=== PATIENT | male | born 1970 | race Caucasian/White ===

== ENCOUNTER 2020-08-13 05:32 | Inpatient (IN) | payer BC ==
[2020-08-13] MEDS ORDERED: SODIUM CHLORIDE 0.9% 1,000 ML IV STA (05:51)
--- NOTE | 2020-08-13 05:52 | ED ---
Chest Pain HPI - General Chief Complaint: Chest Pain Stated Complaint: SOB Time Seen by Provider: 08/13/20 05:39 Source: patient, RN notes reviewed, old records reviewed Mode of arrival: EMS Limitations: no limitations - History of Present Illness Initial Comments: this is a 50-year-old female male DF for evaluation known history of covert exposure presented he has current covert. Having fevers last night shortness of breath today. MD Complaint: chest pain -: week(s) Onset: during rest, during exertion Pain Location: left chest Pain Radiation: back Severity: moderate Severity scale (1-10): 5 Quality: tightness, heaviness Consistency: constant Improves With: nothing Worsens With: nothing Anginal Symptoms: diaphoresis, dyspnea Other Symptoms: fever, palpitations Treatments Prior to Arrival: none - Related Data Home Medications Medication Instructions Recorded Confirmed No Known Home Medications 08/13/20 08/13/20 Allergies Allergy/AdvReac Type Severity Reaction Status Date / Time No Known Allergies Allergy Verified 08/13/20 09:56 Review of Systems ROS Statement: Those systems with pertinent positive or pertinent negative responses have been documented in the HPI. ROS Other: All systems not noted in ROS Statement are negative. EKG Findings - EKG Comments: EKG Findings:: EKG is sinus rhythm 80 MO 1:30 QRS 80 QTC 4 Past Medical History Past Medical History: No Reported History History of Any Multi-Drug Resistant Organisms: None Reported Past Surgical History: No Surgical Hx Reported Past Psychological History: No Psychological Hx Reported Smoking Status: Former smoker Past Alcohol Use History: Rare Past Drug Use History: None Reported - Past Family History Father Family Medical History: No Reported History Mother Additional Family Medical History / Comment(s): History of skin cancer Sister(s) Family Medical History: No Reported History General Exam Limitations: no limitations General appearance: alert, in no apparent distress Head exam: Present: atraumatic, normocephalic, normal inspection Eye exam: Present: normal appearance, PERRL, EOMI. Absent: scleral icterus, conjunctival injection, periorbital swelling ENT exam: Present: normal exam, mucous membranes moist Neck exam: Present: normal inspection. Absent: tenderness, meningismus, lymphadenopathy Respiratory exam: Present: accessory muscle use, decreased breath sounds (Left), prolonged expiratory. Absent: respiratory distress, wheezes, rales, rhonchi, stridor Cardiovascular Exam: Present: regular rate, normal rhythm, tachycardia, normal heart sounds. Absent: systolic murmur, diastolic murmur, rubs, gallop, clicks GI/Abdominal exam: Present: soft, normal bowel sounds. Absent: distended, tenderness, guarding, rebound, rigid Extremities exam: Present: normal inspection, full ROM, normal capillary refill. Absent: tenderness, pedal edema, joint swelling, calf tenderness Back exam: Present: normal inspection Neurological exam: Present: alert, oriented X3, CN II-XII intact Psychiatric exam: Present: normal affect, normal mood Skin exam: Present: warm, dry, intact, normal color. Absent: rash Course Vital Signs 08/13/20 08/13/20 08/13/20 05:37 06:15 06:35 Temperature 98.3 F 98.1 F Pulse Rate 89 77 Respiratory 20 24 19 Rate Blood Pressure 126/74 118/74 O2 Sat by Pulse 96 95 Oximetry 08/13/20 08/13/20 07:32 07:42 Temperature Pulse Rate 76 84 Respiratory Rate Blood Pressure O2 Sat by Pulse Oximetry - Reevaluation(s) Reevaluation #1: medical records reviewed patient still remains short of breath does not feel well with fever Patient informed results questions answered Chest Pain MDM - MDM 50 male DF for evaluation, patient be admitted for fever shortness of breath rule out coronavirus Disposition Clinical Impression: Chest pain, Atypical chest pain, Fever, Pleural effusion, right Narrative: ro COVID Disposition: ADMITTED IP TO THIS HOSP Condition: Fair Is patient prescribed a controlled substance at d/c from ED?: No
[2020-08-13 06:23] LABS: Basophils # (A) 0.1 k/uL (0-0.2); Basophils % (A) 1 %; Eosinophils # (A) 0.3 k/uL (0-0.7); Eosinophils % (A) 2 %; HGB 14.6 gm/dL (13.0-17.5); Lymphocytes # (A) 1.7 k/uL (1.0-4.8); Lymphocytes % (A) 9 %; MCH 30.9 pg (25.0-35.0); MCHC 33.9 g/dL (31.0-37.0); MCV 91.2 fL (80.0-100.0); Mean Platelet Volume 8.4; Monocytes # (A) 1.1 k/uL (0-1.0); Monocytes % (A) 6 %; Neutrophils # (A) 15.9 k/uL (1.3-7.7); Neutrophils % (A) 83 %; Platelet Count 325 k/uL (150-450); RBC 4.72 m/uL (4.30-5.90); WBC 19.2 k/uL (3.8-10.6)
[2020-08-13 06:31] LABS: ALT 26 U/L (4-49); AST 19 U/L (17-59); African American GFR (CKD) >90 (>60 ml/min/1.73 sqM); Albumin 4.2 g/dL (3.5-5.0); Alkaline Phosphatase 72 U/L (38-126); Anion Gap 9 mmol/L; Blood Urea Nitrogen 15 mg/dL (9-20); Calcium 9.3 mg/dL (8.4-10.2); Carbon Dioxide 27 mmol/L (22-30); Chloride 101 mmol/L (98-107); Creatine Kinase 35 U/L (55-170); Glucose 126 mg/dL (74-99); LDH 409 U/L (313-618); Magnesium 1.8 mg/dL (1.6-2.3); Non-African American GFR(CKD) >90 (>60 ml/min/1.73 sqM); Potassium 4.4 mmol/L (3.5-5.1); Sodium 137 mmol/L (137-145); Total Bilirubin 1.2 mg/dL (0.2-1.3)
[2020-08-13] MEDS ORDERED: MORPHINE SULFATE 4 MG/ML SYRINGE IVP STA (06:36)
[2020-08-13 06:38] LABS: Prothrombin Time 10.3 sec (9.0-12.0)
[2020-08-13 06:39] LABS: C Reactive Protein 53.7 mg/L (<10.0); D-Dimer 0.94 mg/L FEU (<0.60)
[2020-08-13] MEDS ORDERED: PNEUMONIA PROTOCOL UTILIZED 1 EACH MISC PO PRN (07:05)
--- NOTE | 2020-08-13 07:06 | CT ---
EXAMINATION TYPE: CT angio chest DATE OF EXAM: 08/13/2020 6:56 AM COMPARISON: None. HISTORY: Mid back pain, SOB CT DLP: 374.5 mGycm Automated exposure control for dose reduction was used. CONTRAST: CTA scan of the thorax is performed with IV Contrast, patient injected with 71 mL of Isovue 370, pulm onary embolism protocol. . FINDINGS: LUNGS: Exam noted suboptimal as patient unable to hold breath especially for subcentimeter nodules.. There is small to moderate left pleural effusion with associated compressive atelectasis. There is po sterior right basilar atelectasis and/or Limited consolidation. No pneumothorax seen bilaterally. No suspicious pulmonary masses. Tracheobronchial tree patent. MEDIASTINUM: There is satisfactory enhancement of the pulmonary artery and its branches, there is no CT evidence for pulmonary embolism. Satisfactory enhancement of the aorta without dissection or aneur ysm. There are some prominent borderline enlarged bilateral hilar along with subcarinal and right tra cheobronchial lymph nodes. Cardiomegaly is present. No pericardial effusion is seen. OTHER: Small degree of subareolar gynecomastia bilaterally. Visualized liver low density relative to the spleen consistent with diffuse fatty infiltration. Mild multilevel spurring in the thoracic spin e. IMPRESSION: 1. No CT evidence for acute pulmonary embolism. 2. Cardiomegaly with small to moderate size left pleural effusion and associated left lung compressiv e atelectasis. Less prominent right basilar atelectasis and/or consolidation.
[2020-08-13] MEDS ORDERED: AZITHROMYCIN 500 MG in SODIUM CHLORIDE 0.9% 250 ML IVPB STA (07:08)
[2020-08-13] MEDS: IPRATROPIUM-ALBUTEROL 3 ML NEB INHALATION PRN ×3 (07:29→20:21)
[2020-08-13] MEDS ORDERED: AZITHROMYCIN 500 MG in SODIUM CHLORIDE 0.9% 250 ML IVPB SCH (09:00)
[2020-08-13] MEDS: MORPHINE SULFATE 4 MG/ML SYRINGE IVP PRN ×2 (12:40→19:30)
--- NOTE | 2020-08-13 14:15 | P.CNPUL ---
History of Present Illness Consult date: 08/13/20 Requesting physician: Ailyn Atwood Reason for consult: dyspnea, abnormal CXR/CT (Left lower lobe consolidation) Chief complaint: Left-sided chest discomfort, shortness of breath History of present illness: This is a pleasant 50-year-old gentleman with no current primary care provider. No current home medications. He presented here to the emergency room yesterday with complaints of increasing left-sided chest discomfort and shortness of breath. He states he was exposed to CoVID 19 back in April and feels like he had it at that time. He was tested negative but his [id number] tested positive. He's had recently moved here from the [facility]. CT angiogram revealed no evidence of acute pulmonary embolism. There is cardiomegaly with a small to moderate left sided pleural effusion and associated left lung compressive atelectasis/infiltrate and he has a temperature of 99.9. Maintaining O2 saturations in the mid 90s on 2 L/m per nasal cannula. He is hemodynamically stable. He is seen today in consultation on the regular medical floor. Awake and alert in no acute distress. White count 19.2. Hemoglobin 14.6. D-dimer 0.94. Sodium 137. Potassium 4.4. Creatinine 0.96. LDH 409. Troponin negative 1. C-reactive protein 53.7. ProBNP 18. Pro-calcitonin 0.50. He's been initiated on ceftriaxone and azithromycin. CoVID 19 by PCR pending. Review of Systems REVIEW OF SYSTEMS: CONSTITUTIONAL: Denies any recent significant weight loss or weight gain. EYES: Denies change in vision. EARS, NOSE, MOUTH, THROAT: Denies headaches, denies sore throat. CARDIOVASCULAR: Positive for left-sided chest pain chest pain, no palpitations or syncopal episodes. RESPIRATORY: Positive for shortness of breath, cough, congestion no hemoptysis. GASTROINTESTINAL: Denies change in appetite, denies abdominal pain GENITOURINARY: Denies hematuria, denies infections. MUSKULOSKELETAL: Denies pain, denies swelling. INTEGUMENTARY: Denies rash, denies eczema. NEUROLOGICAL: Denies recent memory loss, no recent seizure activity. PSYCHIATRIC: Denies anxiety, denies depression. HEMATOLOGIC/LYMPHATIC: Denies anemia, denies enlarged lymph nodes. Past Medical History Past Medical History: No Reported History History of Any Multi-Drug Resistant Organisms: None Reported Past Surgical History: No Surgical Hx Reported Past Anesthesia/Blood Transfusion Reactions: No Reported Reaction Past Psychological History: No Psychological Hx Reported Smoking Status: Former smoker Past Alcohol Use History: Rare Past Drug Use History: None Reported - Past Family History Father Family Medical History: No Reported History Medications and Allergies Home Medications Medication Instructions Recorded Confirmed Type No Known Home Medications 08/13/20 08/13/20 History Allergies Allergy/AdvReac Type Severity Reaction Status Date / Time No Known Allergies Allergy Verified 08/13/20 09:56 Physical Exam Vitals: Vital Signs Temp Pulse Pulse Resp BP BP Pulse Ox 08/13/20 11:55 88 08/13/20 11:46 80 08/13/20 08:20 99.9 F H 80 22 128/79 96 08/13/20 07:42 84 08/13/20 07:32 76 08/13/20 06:35 98.1 F 77 19 118/74 95 08/13/20 06:15 24 08/13/20 05:37 98.3 F 89 20 126/74 96 Intake and Output 08/12/20 08/13/20 08/13/20 22:59 06:59 14:59 Intake Total 640 Balance 640 Intake: Oral 640 Other: Weight 90.718 kg 90.718 kg GENERAL EXAM: Alert, active, pleasant 50-year-old gentleman, on 2 L nasal cannula, comfortable in no apparent distress. HEAD: Normocephalic. EYES: Normal reaction of pupils, equal size. NOSE: Clear with pink turbinates. THROAT: No erythema or exudates. NECK: No masses, no JVD. CHEST: No chest wall deformity. LUNGS: Equal air entry with crackles in left posterior base, diminished. CVS: S1 and S2 normal with no audible murmur, regular rhythm. ABDOMEN: No hepatosplenomegaly, normal bowel sounds, no guarding or rigidity. SPINE: No scoliosis or deformity SKIN: No rashes CENTRAL NERVOUS SYSTEM: No focal deficits, tone is normal in all 4 extremities. EXTREMITIES: There is no peripheral edema. No clubbing, no cyanosis. Peripheral pulses are intact. Results - Laboratory Findings CBC and BMP: 08/13/20 06:12 08/13/20 06:12 PT/INR, D-dimer PT 10.3 sec (9.0-12.0) 08/13/20 06:12 INR 1.0 (<1.2) 08/13/20 06:12 D-Dimer 0.94 mg/L FEU (<0.60) H 08/13/20 06:12 Abnormal lab findings: Abnormal Labs 08/13/20 08/13/20 08/13/20 06:12 06:12 06:12 WBC 19.2 H Neutrophils # 15.9 H Monocytes # 1.1 H D-Dimer 0.94 H Glucose 126 H Creatine Kinase 35 L C-Reactive Protein 53.7 H Procalcitonin 08/13/20 06:12 WBC Neutrophils # Monocytes # D-Dimer Glucose Creatine Kinase C-Reactive Protein Procalcitonin 0.50 H - Diagnostic Findings CT scan - chest: image reviewed Assessment and Plan Assessment: 1 Acute community-acquired left lower lobe pneumonia, CoVID 19 screen pending 2 Left-sided chest discomfort secondary to above 3 Acute hypoxemic respiratory failure secondary to above Plan: The patient was seen and evaluated by Dr. Abdi Chest x-ray and labs reviewed Suspect community-acquired pneumonia versus Covid pneumonitis Covid screen pending Continue ceftriaxone and azithromycin, bronchodilators We will continue to follow and make further recommendations based on his clinical status. I, the cosigning physician, performed a history & physical examination of the patient. Lungs sounds with crackles in left posterior base, diminished Maintaining good O2 saturations in the 90s on 2 L/m per nasal cannula. I discussed the assessment and plan of care with my nurse practitioner, Naomie Medrano. I attest to the above consultation as dictated by her. Time with Patient: Greater than 30
[2020-08-13] MEDS: KETOROLAC 15 MG/ML 1 ML VIAL IVP PRN ×2 (15:20→21:30)
--- NOTE | 2020-08-13 16:03 | P.HPIM ---
History of Present Illness Patient is a 50-year-old male came in with compensative shortness of breath and left-sided chest pain. Patient was exposed to family members with Covid 19 in April. Patient was comparing of cough unable to bring up anything. Patient was found to have fevers patient had a CT angiogram of the chest which did not show any embolism but patient does have left-sided pneumonia appears to be lobar pneumonia along with pleural effusion which is contributing to his chest pain. Patient has progressed from 0.5 patient was started on azithromycin and ceftriaxone. Covid 19 PCR is pending. Patient had one set of troponin which was negative patient chest pain is pleuritic in nature Review of Systems REVIEW OF SYSTEMS: CONSTITUTIONAL: No fever, no malaise, no fatigue. HEENT: No recent visual problems or hearing problems. Denied any sore throat. CARDIOVASCULAR: No orthopnea, PND, no palpitations, no syncope. PULMONARY: no hemoptysis. GASTROINTESTINAL: No diarrhea, no nausea, no vomiting, no abdominal pain. NEUROLOGICAL: No headaches, no weakness, no numbness. HEMATOLOGICAL: Denies any bleeding or petechiae. GENITOURINARY: Denies any burning micturition, frequency, or urgency. MUSCULOSKELETAL/RHEUMATOLOGICAL: Denies any joint pain, swelling, or any muscle pain. ENDOCRINE: Denies any polyuria or polydipsia. The rest of the 14-point review of systems is negative. Past Medical History Past Medical History: No Reported History History of Any Multi-Drug Resistant Organisms: None Reported Past Surgical History: No Surgical Hx Reported Past Anesthesia/Blood Transfusion Reactions: No Reported Reaction Past Psychological History: No Psychological Hx Reported Smoking Status: Former smoker Past Alcohol Use History: Rare Past Drug Use History: None Reported - Past Family History Father Family Medical History: No Reported History Medications and Allergies Home Medications Medication Instructions Recorded Confirmed Type No Known Home Medications 08/13/20 08/13/20 History Allergies Allergy/AdvReac Type Severity Reaction Status Date / Time No Known Allergies Allergy Verified 08/13/20 09:56 Physical Exam Vitals: Vital Signs Temp Pulse Pulse Resp BP BP Pulse Ox 08/13/20 14:15 100.1 F H 84 18 132/74 90 L 08/13/20 11:55 88 08/13/20 11:46 80 08/13/20 08:20 99.9 F H 80 22 128/79 96 08/13/20 07:42 84 08/13/20 07:32 76 08/13/20 06:35 98.1 F 77 19 118/74 95 08/13/20 06:15 24 08/13/20 05:37 98.3 F 89 20 126/74 96 Intake and Output 08/13/20 08/13/20 08/13/20 06:59 14:59 22:59 Intake Total 1390 Balance 1390 Intake: Intake, IV Titration 350 Amount Azithromycin 500 mg In 250 Sodium Chloride 0.9% 250 ml @ 250 mls/hr IVPB DAILY [facility] Rx#:[id number] cefTRIAXone 1 gm In 100 Sodium Chloride 0.9% 50 ml @ 100 mls/hr IVPB Q12HR [facility] Rx#:[id number] Oral 1040 Other: Weight 90.718 kg 90.718 kg PHYSICAL EXAMINATION: GENERAL: The patient is alert and oriented x3, not in any acute distress. Well developed, well nourished. HEENT: Pupils are round and equally reacting to light. EOMI. No scleral icterus. No conjunctival pallor. Normocephalic, atraumatic. No pharyngeal erythema. No thyromegaly. CARDIOVASCULAR: S1 and S2 present. No murmurs, rubs, or gallops. PULMONARY: Crackles in left lower lung bases ABDOMEN: Soft, nontender, nondistended, normoactive bowel sounds. No palpable organomegaly. MUSCULOSKELETAL: No joint swelling or deformity. EXTREMITIES: No cyanosis, clubbing, or pedal edema. NEUROLOGICAL: Gross neurological examination did not reveal any focal deficits. SKIN: No rashes. Note: Because of COVID 19 isolation, some of the history and physical exam findings or indirect and obtained from nursing staff, and other physician examinations to avoid unnecessary contact with the patient. Results CBC & Chem 7: 08/13/20 06:12 08/13/20 06:12 Labs: Abnormal Lab Results - Last 24 Hours (Table) 08/13/20 08/13/20 08/13/20 Range/Units 06:12 06:12 06:12 WBC 19.2 H (3.8-10.6) k/uL Neutrophils # 15.9 H (1.3-7.7) k/uL Monocytes # 1.1 H (0-1.0) k/uL D-Dimer 0.94 H (<0.60) mg/L FEU Glucose 126 H (74-99) mg/dL Creatine Kinase 35 L (55-170) U/L C-Reactive Protein 53.7 H (<10.0) mg/L Procalcitonin (0.02-0.09) ng/mL 08/13/20 Range/Units 06:12 WBC (3.8-10.6) k/uL Neutrophils # (1.3-7.7) k/uL Monocytes # (0-1.0) k/uL D-Dimer (<0.60) mg/L FEU Glucose (74-99) mg/dL Creatine Kinase (55-170) U/L C-Reactive Protein (<10.0) mg/L Procalcitonin 0.50 H (0.02-0.09) ng/mL Thrombosis Risk Factor Assmnt - Choose All That Apply Each Factor Represents 1 point: Age 41-60 years, Obesity (BMI >25) Other Risk Factors: No Other congenital or acquired thrombophilia - If yes, enter type in comment: No Thrombosis Risk Factor Assessment Total Risk Factor Score: 2 Thrombosis Risk Factor Assessment Level: Low Risk Assessment and Plan Plan: -Possible community acquired pneumonia: Patient will continued on Rocephin and azithromycin. -Left-sided chest pain pleuritic in nature secondary to pneumonia and parapneumonic effusion -Acute hypoxic respiratory failure secondary to pneumonia patient will be continued on inhalational treatments continue with the antibiotics. -Rule out PE -DVT prophylaxis with Lovenox, GI prophylaxis Pepcid
[2020-08-13] MEDS: FAMOTIDINE 20 MG TAB PO SCH (21:32)
[2020-08-14] MEDS: MORPHINE SULFATE 4 MG/ML SYRINGE IVP PRN (01:34)
[2020-08-14] MEDS: KETOROLAC 15 MG/ML 1 ML VIAL IVP PRN ×4 (05:47→23:39)
[2020-08-14] MEDS: FAMOTIDINE 20 MG TAB PO SCH ×2 (08:27→20:08)
[2020-08-14] MEDS: ENOXAPARIN 40 MG/0.4 ML SYRINGE SQ SCH (08:28)
[2020-08-14] MEDS: IPRATROPIUM-ALBUTEROL 3 ML NEB INHALATION PRN ×3 (09:00→19:40)
[2020-08-14] MEDS: AZITHROMYCIN 500 MG in SODIUM CHLORIDE 0.9% 250 ML IVPB SCH (09:49)
--- NOTE | 2020-08-14 09:49 | XR ---
EXAMINATION TYPE: XR chest 1V portable DATE OF EXAM: 08/14/2020 CLINICAL HISTORY: Difficulty breathing progress study. TECHNIQUE: Single AP portable upright view of the chest is obtained. COMPARISON: CTA chest from one day earlier FINDINGS: Persistent and more prominent small to moderate size left pleural effusion with associated left basilar atelectasis and/or consolidation. Background chronic emphysematous change. Persistent c ardiomegaly with atherosclerotic and ectatic aorta causing right-sided tracheal deviation. New patchy right basilar linear scarring and/or atelectasis. Osseous structures are intact. IMPRESSION: Worsening small to moderate size left pleural effusion with worsening associated atelecta sis and/or consolidation. New patchy right basilar atelectasis and/or infiltrate. Background cardiome yisel and chronic emphysematous change. Pattern of pleural effusion and consolidation not typical of C OVID 19 infection.
--- NOTE | 2020-08-14 11:16 | P.PN ---
Subjective Progress Note Date: 08/14/20 Principal diagnosis: Community-acquired pneumonia This is a pleasant 50-year-old gentleman with no current primary care provider. No current home medications. He presented here to the emergency room yesterday with complaints of increasing left-sided chest discomfort and shortness of breath. He states he was exposed to CoVID 19 back in April and feels like he had it at that time. He was tested negative but his [id number] tested positive. He's had recently moved here from the [facility]. CT angiogram revealed no evidence of acute pulmonary embolism. There is cardiomegaly with a small to moderate left sided pleural effusion and associated left lung compressive a telectasis/infiltrate and he has a temperature of 99.9. Maintaining O2 saturations in the mid 90s on 2 L/m per nasal cannula. He is hemodynamically stable. He is seen today in consultation on the regular medical floor. Awake and alert in no acute distress. White count 19.2. Hemoglobin 14.6. D-dimer 0.94. Sodium 137. Potassium 4.4. Creatinine 0.96. LDH 409. Troponin negative 1. C-reactive protein 53.7. ProBNP 18. Pro-calcitonin 0.50. He's been initiated on ceftriaxone and azithromycin. CoVID 19 by PCR pending. The patient is seen today 08/14/2020 in follow-up on the regular medical floor. He is currently sitting up in a chair at the bedside. Awake and alert in no acute distress. Maintaining O2 saturations in the 90s on 2 L/m per nasal cannula. He is afebrile. Hemodynamically stable. Covid 19 by PCR test still pending. Blood culture reveals no growth to date. Chest x-ray reveals worsening moderate-sized left pleural effusion with associated atelectasis/consolidation. New patchy right basilar atelectasis/infiltrate. Cardiomegaly and chronic emphysematous changes. He does have a T-max of 101.0 last evening. Continued on ceftriaxone and azithromycin along with bronchodilators. Objective - Vital Signs Vital signs: Vital Signs Temp 98.9 F 08/14/20 07:00 Pulse 97 08/14/20 09:09 Resp 16 08/14/20 07:00 BP 123/94 08/14/20 07:00 Pulse Ox 93 L 08/14/20 09:00 Intake & Output 08/13/20 08/14/20 08/14/20 18:59 06:59 18:59 Intake Total 1390 Balance 1390 Weight 90.718 kg Intake: Intake, IV Titration 350 Amount Azithromycin 500 mg In 250 Sodium Chloride 0.9% 250 ml @ 250 mls/hr IVPB DAILY [facility] Rx#:[id number] cefTRIAXone 1 gm In 100 Sodium Chloride 0.9% 50 ml @ 100 mls/hr IVPB Q12HR [facility] Rx#:[id number] Oral 1040 - Exam GENERAL EXAM: Alert, active, pleasant 50-year-old gentleman, on 2 L nasal cannula, comfortable in no apparent distress. HEAD: Normocephalic. EYES: Normal reaction of pupils, equal size. NOSE: Clear with pink turbinates. THROAT: No erythema or exudates. NECK: No masses, no JVD. CHEST: No chest wall deformity. LUNGS: Equal air entry with crackles in the posterior bases, left greater than right CVS: S1 and S2 normal with no audible murmur, regular rhythm. ABDOMEN: No hepatosplenomegaly, normal bowel sounds, no guarding or rigidity. SPINE: No scoliosis or deformity SKIN: No rashes CENTRAL NERVOUS SYSTEM: No focal deficits, tone is normal in all 4 extremities. EXTREMITIES: There is no peripheral edema. No clubbing, no cyanosis. Peripheral pulses are intact. - Labs CBC & Chem 7: 08/13/20 06:12 08/13/20 06:12 Labs: Abnormal Lab Results - Last 24 Hours (Table) 08/13/20 Range/Units 06:12 Procalcitonin 0.50 H (0.02-0.09) ng/mL Microbiology - Last 24 Hours (Table) 08/13/20 07:44 Blood Culture - Preliminary Blood No Growth after 24 hours Assessment and Plan Assessment: 1 Acute community-acquired left lower lobe pneumonia, worsening on chest x-ray today, CoVID 19 screen still pending 2 Left-sided chest discomfort secondary to above 3 Acute hypoxemic respiratory failure secondary to above 4 Febrile illness secondary to above Plan: The patient was seen and evaluated by Dr. Abdi Chest x-ray reviewed Left pleural infiltrate/effusion increased, obtain ultrasound May require left-sided thoracentesis Possible empyema, suspect community-acquired pneumonia versus Covid pneumonitis Covid screen still pending Continue ceftriaxone and azithromycin, bronchodilators We will continue to follow and make further recommendations based on his clinical status. I, the cosigning physician, performed a history & physical examination of the patient. Lungs sounds with bibasilar crackles, left greater than right, diminished Maintaining good O2 saturations in the 90s on 2 L/m per nasal cannula. I discussed the assessment and plan of care with my nurse practitioner, Naomie Medrano. I attest to the above note as dictated by her.
--- NOTE | 2020-08-14 12:12 | US ---
EXAMINATION TYPE: US chest DATE OF EXAM: 08/14/2020 COMPARISON: CT yesterday, X ray earlier today CLINICAL HISTORY: Left pleural effusion, hypoxia. Patient stated had Covid April 2020. TECHNIQUE: Targeted ultrasound of the posterior chest bilaterally EXAM MEASUREMENTS: Right Pleural Effusion pocket size: no pleural fluid was seen Left Pleural Effusion pocket size: 2.5 cm A/P free fluid pocket seen anteriorly in 8.3cm A/P loculat ed fluid pocket Left skin surface to fluid distance: 3.7 cm A/P Left side was marked for possible thoracentesis outside the dept. Pulmonologists are able to review the images in the patient?s EMR. IMPRESSIONS: Confirmation of [id number] size left basilar pleural effusion corresponds to same day x-ray.
--- NOTE | 2020-08-14 12:46 | PCN ---
PROCEDURE NOTE PROCEDURE PERFORMED: Left thoracentesis. CERTIFIED HAND THERAPIST: Dr. Abdi and Dr. Medrano. INDICATION: Pleural effusion. A time-out was completed verifying correct patient, procedure, site, positioning , and implant (s) or special equipment if applicable. Ultrasound guidance was used and appropriate fluid pocket was identified and marked. Patient was positioned, prepped and draped in usual sterile fashion. Lidocaine was used to anesthetize the area. A Thoracentesis catheter was introduced into the pleural space and fluid was removed. Blood loss was none. A chest x-ray was ordered to evaluate for pneumothorax. The left posterior chest was marked by ultrasound, 500 mL of thick yellow fluid was removed from the left pleural space. The patient tolerated the procedure well. The fluid will be sent for analysis including microbiology, cytology, chemistry. Chest x- ray was ordered to rule out pneumothorax. The patient tolerated the procedure well. 500 mL of fluid was removed. There was no immediate complication. Total Fluid Removed 500 mL Color of Fluid : Yellow Fluid was sent for appropriate laboratory tests. Patient tolerated the procedure well and there were no complications. MMODL / IJN: [id number] /
--- NOTE | 2020-08-14 13:17 | XR ---
EXAMINATION TYPE: XR chest 1V portable DATE OF EXAM: 08/14/2020 CLINICAL HISTORY: Post left-sided thoracentesis.. TECHNIQUE: Single AP portable upright view of the chest is obtained. COMPARISON: Chest x-ray from earlier today FINDINGS: No pneumothorax after left-sided thoracentesis. Persistent moderate left-sided pleural eff usion or fluid collection. Associated left lung atelectasis and/or consolidation. Patchy right basila r acute atelectasis and/or infiltrate. Stable cardiomegaly with atherosclerotic an ectatic aortic kno b causing right-sided tracheal deviation. Osseous structures intact. IMPRESSION: No pneumothorax after left-sided thoracentesis. No significant change from x-ray earlier today.
[2020-08-14 15:08] LABS: Appearance,BF Hazy; Color,BF Yellow; Nucleated Cells, Body Fluid 4900 /uL; RBC, Body Fluid 5160 /uL
[2020-08-14 15:09] LABS: Mononuclear WBC,Body Fluid 33 %; Polynuclear WBC,Body Fluid 67 %
--- NOTE | 2020-08-14 15:33 | P.PN ---
Subjective Progress Note Date: 08/14/20 Patient is a 50-year-old male came in with compensative shortness of breath and left-sided chest pain. Patient was exposed to family members with Covid 19 in April. Patient was comparing of cough unable to bring up anything. Patient was found to have fevers patient had a CT angiogram of the chest which did not show any embolism but patient does have left-sided pneumonia appears to be lobar pneumonia along with pleural effusion which is contributing to his chest pain. Patient has progressed from 0.5 patient was started on azithromycin and ceftriaxone. Covid 19 PCR is pending. Patient had one set of troponin which was negative patient chest pain is pleuritic in nature 08/14/2020 Patient is seen on follow-up, remains on 2 L nasal cannula. Chest x-ray today showed worsening right-sided pleural effusion, he had thoracentesis done by pulmonary with 500 mL of purulent yellow fluid removed. He is currently afebrile, however was running fever of 101.1 yesterday evening. He is on antimicrobial therapy with azithromycin and Rocephin. He does report having some chest discomfort, however it is improved as compared to yesterday. Review Of Systems: Constitutional: No fever, no chills, no night sweats. Lungs: Improving chest discomfort, cough, Cardiovascular: no lower extremity edema. No palpitations. Abdominal: No abdominal pain. No nausea, vomiting. No diarrhea. Objective - Vital Signs Vital signs: Vital Signs Temp 99.3 F 08/14/20 13:57 Pulse 97 08/14/20 13:57 Resp 16 08/14/20 13:57 BP 127/83 08/14/20 13:57 Pulse Ox 93 L 08/14/20 13:57 Intake & Output 08/13/20 08/14/20 08/14/20 18:59 06:59 18:59 Intake Total 1390 540 Balance 1390 540 Weight 90.718 kg Intake: Intake, IV Titration 350 Amount Azithromycin 500 mg In 250 Sodium Chloride 0.9% 250 ml @ 250 mls/hr IVPB DAILY [facility] Rx#:[id number] cefTRIAXone 1 gm In 100 Sodium Chloride 0.9% 50 ml @ 100 mls/hr IVPB Q12HR [facility] Rx#:[id number] Oral 1040 540 Other: # Voids 3 - Exam PHYSICAL EXAMINATION: GENERAL: The patient is alert and oriented x3, not in any acute distress. Well developed, well nourished. HEENT: Pupils are round and equally reacting to light. EOMI. No scleral icterus. No conjunctival pallor. Normocephalic, atraumatic. No pharyngeal erythema. No thyromegaly. CARDIOVASCULAR: S1 and S2 present. No murmurs, rubs, or gallops. PULMONARY: Crackles in lower lung bases,L>R ABDOMEN: Soft, nontender, nondistended, normoactive bowel sounds. No palpable organomegaly. MUSCULOSKELETAL: No joint swelling or deformity. EXTREMITIES: No cyanosis, clubbing, or pedal edema. NEUROLOGICAL: Gross neurological examination did not reveal any focal deficits. SKIN: No rashes. - Labs CBC & Chem 7: 08/13/20 06:12 08/13/20 06:12 Labs: Microbiology - Last 24 Hours (Table) 08/13/20 07:44 Blood Culture - Preliminary Blood No Growth after 24 hours Assessment and Plan Assessment: Plan: -Possible community acquired pneumonia: Continue antimicrobial therapy with azithromycin and Rocephin, Covid 19 PCR pending -Large left-sided pleural effusion: Status post thoracentesis 500 mL of purulent yellow fluid removed. -Left-sided chest pain pleuritic in nature secondary to pneumonia and parapneumonic effusion: Cultures pending -Acute hypoxic respiratory failure secondary to pneumonia And left-sided parapneumonic effusion: Continue on above-mentioned antimicrobial therapy, S/P L-thoracentesis 500 ml purulent yellow fluid off, on 2 L nasal cannula. -Rule out PE -DVT prophylaxis with Lovenox, GI prophylaxis Pepcid
[2020-08-14 17:23] LABS: Glucose, BF Source Pleural Fluid; Glucose, Body Fluid <4 mg/dL; LDH, Body Fluid Source Pleural Fluid; Total Protein, Body Fluid 4600 mg/dL
[2020-08-15] MEDS: KETOROLAC 15 MG/ML 1 ML VIAL IVP PRN ×3 (05:49→20:52)
[2020-08-15 06:25] LABS: Basophils % (A) 0 %; Eosinophils # (A) 0.3 k/uL (0-0.7); Eosinophils % (A) 2 %; HCT 41.6 % (39.0-53.0); HGB 13.6 gm/dL (13.0-17.5); Lymphocytes # (A) 1.2 k/uL (1.0-4.8); Lymphocytes % (A) 7 %; MCH 30.3 pg (25.0-35.0); MCHC 32.7 g/dL (31.0-37.0); MCV 92.5 fL (80.0-100.0); Mean Platelet Volume 8.5; Monocytes % (A) 6 %; Neutrophils # (A) 14.9 k/uL (1.3-7.7); Neutrophils % (A) 84 %; Platelet Count 291 k/uL (150-450); RDW 12.3 % (11.5-15.5); WBC 17.6 k/uL (3.8-10.6)
[2020-08-15] MEDS: FAMOTIDINE 20 MG TAB PO SCH ×2 (07:48→20:51)
[2020-08-15] MEDS: ENOXAPARIN 40 MG/0.4 ML SYRINGE SQ SCH (07:48)
[2020-08-15] MEDS: AZITHROMYCIN 500 MG in SODIUM CHLORIDE 0.9% 250 ML IVPB SCH (08:30)
[2020-08-15] MEDS ORDERED: HYDROcodone/APAP 7.5-325MG 1 EACH TAB PO PRN (11:11)
[2020-08-15] MEDS: IPRATROPIUM-ALBUTEROL 3 ML NEB INHALATION PRN ×3 (11:14→19:59)
--- NOTE | 2020-08-15 14:02 | P.PN ---
Subjective Progress Note Date: 08/15/20 Principal diagnosis: Community acquired pneumonia, parapneumonic effusion This is a pleasant 50-year-old gentleman with no current primary care provider. No current home medications. He presented here to the emergency room yesterday with complaints of increasing left-sided chest discomfort and shortness of breath. He states he was exposed to CoVID 19 back in April and feels like he had it at that time. He was tested negative but his [id number] tested positive. He's had recently moved here from the [facility]. CT angiogram revealed no evidence of acute pulmonary embolism. There is cardiomegaly with a small to moderate left sided pleural effusion and associated left lung compressive atelectasis/infiltrate and he has a temperature of 99.9. Maintaining O2 sat urations in the mid 90s on 2 L/m per nasal cannula. He is hemodynamically stable. He is seen today in consultation on the regular medical floor. Awake and alert in no acute distress. White count 19.2. Hemoglobin 14.6. D-dimer 0.94. Sodium 137. Potassium 4.4. Creatinine 0.96. LDH 409. Troponin negative 1. C-reactive protein 53.7. ProBNP 18. Pro-calcitonin 0.50. He's been initiated on ceftriaxone and azithromycin. CoVID 19 by PCR pending. The patient is seen today 08/14/2020 in follow-up on the regular medical floor. He is currently sitting up in a chair at the bedside. Awake and alert in no acute distress. Maintaining O2 saturations in the 90s on 2 L/m per nasal cannula. He is afebrile. Hemodynamically stable. Covid 19 by PCR test still pending. Blood culture reveals no growth to date. Chest x-ray reveals worsening moderate-sized left pleural effusion with associated atelectasis/consolidation. New patchy right basilar atelectasis/infiltrate. Cardiomegaly and chronic emphysematous changes. He does have a T-max of 101.0 last evening. Continued on ceftriaxone and azithromycin along with bronchodilators. On 08/15/2020 patient seen in follow-up and regular medical floor. Patient is awake and alert, in no acute distress, room air pulse ox is 95%, does get short of breath with activity, with slight left-sided chest discomfort. Patient status post left-sided thoracentesis by Dr. Mcqueen, and pleural fluid analysis showed exudative fluid likely related to parapneumonic pleural effusion. Chest x-ray yesterday showed persistent moderate left-sided pleural effusion with associated left lung atelectasis and/or consolidation. Patient is on a combination of azithromycin and Rocephin for antibiotic coverage. Today's labs have been reviewed, patient has elevated white blood cell count of 17.6, hemoglobin is 13.6, no CMP, coronavirus PCR was negative. Gram stain of the pleural fluid has shown no organisms, culture is pending. Blood cultures show no growth. Patient has been afebrile overnight. Objective - Vital Signs Vital signs: Vital Signs Temp 98.7 F 08/15/20 07:00 Pulse 96 08/15/20 11:28 Resp 20 08/15/20 07:00 BP 143/88 08/15/20 07:00 Pulse Ox 95 08/15/20 07:00 Intake & Output 08/14/20 08/15/20 08/15/20 18:59 06:59 18:59 Intake Total 540 Balance 540 Intake: Oral 540 Other: # Voids 3 - Exam GENERAL EXAM: Alert, very pleasant 50-year-old white female, on room air, with a pulse ox of 95% comfortable in no apparent distress. HEAD: Normocephalic/atraumatic. EYES: Normal reaction of pupils, equal size. Conjunctiva pink, sclera white. NOSE: Clear with pink turbinates. THROAT: No erythema or exudates. NECK: No masses, no JVD, no thyroid enlargement, no adenopathy. CHEST: No chest wall deformity. Symmetrical expansion. LUNGS: Diminished to absent air entry over left lower lobe and left middle lung, with no crackles, wheeze, rhonchi or dullness. CVS: Regular rate and rhythm, normal S1 and S2, no gallops, no murmurs, no rubs ABDOMEN: Soft, nontender. No hepatosplenomegaly, normal bowel sounds, no guarding or rigidity. EXTREMITIES: No clubbing, no edema, no cyanosis, 2+ pulses and upper and lower extremities. MUSCULOSKELETAL: Muscle strength and tone normal. SPINE: No scoliosis or deformity SKIN: No rashes CENTRAL NERVOUS SYSTEM: Alert and oriented -3. No focal deficits, tone is normal in all 4 extremities. PSYCHIATRIC: Alert and oriented -3. Appropriate affect. Intact judgment and insight. - Labs CBC & Chem 7: 08/15/20 05:54 08/13/20 06:12 Labs: Abnormal Lab Results - Last 24 Hours (Table) 08/15/20 Range/Units 05:54 WBC 17.6 H (3.8-10.6) k/uL Neutrophils # 14.9 H (1.3-7.7) k/uL Microbiology - Last 24 Hours (Table) 08/13/20 07:44 Blood Culture - Preliminary Blood No Growth after 48 hours 08/14/20 12:00 Gram Stain - Preliminary Pleural Fluid Body Fluid Culture - Preliminary 08/14/20 12:00 Acid Fast Bacilli Culture - Preliminary Pleural Fluid 08/14/20 12:00 Fungal Culture - Preliminary Pleural Fluid Assessment and Plan Plan: Assessment: #1. Acute community-acquired left lower lobe pneumonia with parapneumonic pleural effusion, status post left-sided thoracentesis with removal of 500 mL of thick yellow fluid on 08/14/2020 which showed exudative fluid #2. Left chest discomfort likely related to parapneumonic pleural effusion #3. Acute hypoxic rest or a failure secondary to the above #4. Febrile illness, improved Plan: Obtain current antibiotics, consult cardiothoracic surgery for possibility of VATS of persistent parapneumonic left-sided pleural effusion, we'll obtain a follow-up CAT scan without contrast tomorrow. Will await results of the cultures I performed a history & physical examination of the patient and discussed their management with my nurse practitioner, Tonia Mckee. I reviewed the nurse practitioner's note and agree with the documented findings and plan of care. Lung sounds are positive for diminished and absent breath sounds on the left. The findings and the impression was discussed with the patient. I attest to the documentation by the nurse practitioner. Time with Patient: Less than 30
--- NOTE | 2020-08-15 15:10 | P.PN ---
Subjective 50-year-old male came in with compensative shortness of breath and left-sided chest pain. Patient was exposed to family members with Covid 19 in April. Patient was comparing of cough unable to bring up anything. Patient was found to have fevers patient had a CT angiogram of the chest which did not show any embolism but patient does have left-sided pneumonia appears to be lobar pneumonia along with pleural effusion which is contributing to his chest pain. Patient has progressed from 0.5 patient was started on azithromycin and ceftriaxone. Covid 19 PCR is pending. Patient had one set of troponin which was negative patient chest pain is pleuritic in nature 08/14/2020 Patient is seen on follow-up, remains on 2 L nasal cannula. Chest x-ray today showed worsening right-sided pleural effusion, he had thoracentesis done by pulmonary with 500 mL of purulent yellow fluid removed. He is currently afebrile, however was running fever of 101.1 yesterday evening. He is on antimicrobial therapy with azithromycin and Rocephin. He does report having some chest discomfort, however it is improved as compared to yesterday. 08/15/2020 Patient is having fever today up any repeat CAT scan tomorrow. Patient had empyema and parapneumonic effusion. Patient is negative for Covid 19. Constitutional: Denied any fatigue denied any fever. Cardio vascular: denied any chest pain, palpitations Gastrointestinal denied any nausea vomiting Pulmonary: As mentioned in HPI Neurologic denied any new focal deficits All inpatient medications were reviewed and appropriate changes in these medications as dictated in the interval history and assessment and plan. Objective - Vital Signs Vital signs: Vital Signs Temp 98.7 F 08/15/20 07:00 Pulse 96 08/15/20 11:28 Resp 20 08/15/20 07:00 BP 143/88 08/15/20 07:00 Pulse Ox 95 08/15/20 07:00 Intake & Output 08/14/20 08/15/20 08/15/20 18:59 06:59 18:59 Intake Total 540 Balance 540 Intake: Oral 540 Other: # Voids 3 - Exam PHYSICAL EXAMINATION: GENERAL: The patient is alert and oriented x3, not in any acute distress. Well developed, well nourished. Patient is diaphoretic. HEENT: Pupils are round and equally reacting to light. EOMI. No scleral icterus. No conjunctival pallor. Normocephalic, atraumatic. No pharyngeal erythema. No thyromegaly. CARDIOVASCULAR: S1 and S2 present. No murmurs, rubs, or gallops. PULMONARY: Decreased air entry into bilateral lung mercado no significant wheezing or crackles ABDOMEN: Soft, nontender, nondistended, normoactive bowel sounds. No palpable organomegaly. MUSCULOSKELETAL: No joint swelling or deformity. EXTREMITIES: No cyanosis, clubbing, or pedal edema. NEUROLOGICAL: Gross neurological examination did not reveal any focal deficits. SKIN: No rashes. - Labs CBC & Chem 7: 08/15/20 05:54 08/13/20 06:12 Labs: Abnormal Lab Results - Last 24 Hours (Table) 08/15/20 Range/Units 05:54 WBC 17.6 H (3.8-10.6) k/uL Neutrophils # 14.9 H (1.3-7.7) k/uL Microbiology - Last 24 Hours (Table) 08/13/20 07:44 Blood Culture - Preliminary Blood No Growth after 48 hours 08/14/20 12:00 Gram Stain - Preliminary Pleural Fluid Body Fluid Culture - Preliminary 08/14/20 12:00 Acid Fast Bacilli Culture - Preliminary Pleural Fluid 08/14/20 12:00 Fungal Culture - Preliminary Pleural Fluid Assessment and Plan Plan: -Community-acquired pneumonia with parapneumonic effusion and empyema: Most probably pneumococcal pneumonia. Cultures are pending patient had exudative pleural effusion. Continue with Rocephin and azithromycin. Patient is negative for Covid 19 which was ruled out -Left-sided chest pain pleuritic in nature secondary to pneumonia and parapneumonic effusion/empyema -Acute hypoxic respiratory failure secondary to pneumonia And left-sided parapneumonic effusion: Continue on above-mentioned antimicrobial therapy, S/P L-thoracentesis 500 ml purulent yellow fluid off, she is presently on room air was on oxygen on admission -Rule out PE -DVT prophylaxis with Lovenox, GI prophylaxis Pepcid
[2020-08-15 15:48] LABS: African American GFR (CKD) 121.6 (60.0-200.0); Albumin 3.7 g/dL (3.80-4.90); Albumin/Globulin Ratio 2.06 (1.60-3.17); Anion Gap 10.3 mmol/L (4.00-12.00); BUN/Creat Ratio 23.75 Ratio (12.00-20.00); Calcium 8.4 mg/dL (8.7-10.3); Carbon Dioxide 26.7 mmol/L (21.6-31.8); Globulin 1.8 g/dL (1.6-3.3); Non-African American GFR(CKD) 104.9 (60.0-200.0); Potassium 4.3 mmol/L (3.5-5.5); Total Bilirubin 0.7 mg/dL (0.3-1.2); Total Protein 5.5 g/dL (6.2-8.2)
--- NOTE | 2020-08-15 16:47 | P.GSCN ---
<Andry Valdez - Last Filed: 08/15/20 15:59> History of Present Illness Consult date: 08/15/20 Reason for Consult: Left parapneumonic effusion/empyema. Requesting physician: Jose Banks History of present illness: This is a 50-year-old gentleman who does not follow with a primary physician on an outpatient basis. He has a past medical history significant for hyperlipidemia and is a lifetime nonsmoker. The patient also reports that he feels like he was positive for COVID-19 in April 2020, as he was having [id number] symptoms and his [id number] who lives with him tested positive for COVID-19 back in April. Since April the patient states that he felt like he had recovered from COVID, althoguh he was never tested for the peoples virus. Over the past 2 weeks the patient has had complaints of progressive fatigue, shortness of breath, congestion, feeling like a 2 x 4 was sitting on his chest and a loose nonproductive cough. He denies any recent trauma, fever, chills, nausea, vomiting, diarrhea, constipation, hemoptysis or hematemesis. He also reports that over the past week he was adding a couple of pillows under his head at night which made him feel more comfortable with his breathing. He was taking some NyQuil at nighttime to help him sleep as well. On 08/12/2020 the patient developed some sharp stabbing pain to his left chest around 4 PM in the afternoon and at 4 AM in the morning the pain became more intense and he decided to seek medical attention. He presented to the emergency department here at [facility] with the above-mentioned symptoms. A CTA of his chest was completed which showed no CT evidence for acute pulmonary embolism, it also demonstrated cardiomegaly with small to moderate size left pleural effusion and associated lung compressive atelectasis. A 12-lead EKG was also completed which showed normal sinus rhythm heart rate 80 bpm. Initial laboratory results showed a WBC count of 19.2, hemoglobin 14.6, hematocrit 43.0, platelets 325, d- dimer 0.94, BUN 15, creatinine 0.96, glucose 126, troponin less than 0.012, C- reactive protein 53.7, calcium total and 0.50 and his coronavirus test was not negative. Due to the patient's presenting symptoms a consult was placed to Dr. Abdi from pulmonary medicine who ordered a ultrasound of his chest which showed a left pleural effusion pocket size 2.5 cm AP free fluid pocket was also seen anteriorly 8.3 cm AP loculated fluid pocket. Subsequently, the patient underwent a bedside left sided thoracentesis performed by Dr. Abdi with 500 mL of thick yellow fluid drained. The cytology results remain pending from the thoracentesis procedure. A repeat chest x-ray post thoracentesis was completed which showed no pneumothorax after the left-sided thoracentesis and it also showed a persistent moderate left-sided pleural effusion or fluid collection. Due to the persistent moderate left-sided pleural effusion and a consult was placed Dr. Chaparro Walls from cardiothoracic surgery for further evaluation and treatment recommendations. Review of Systems A 14 point review of systems was completed and was negative except as mentioned in HPI. Past Medical History Past Medical History: Hyperlipidemia Additional Past Medical History / Comment(s): Patient states that he feels like he had COVID- and April 2020. History of Any Multi-Drug Resistant Organisms: None Reported Past Surgical History: No Surgical Hx Reported Past Anesthesia/Blood Transfusion Reactions: No Reported Reaction Past Psychological History: No Psychological Hx Reported Smoking Status: Never smoker Past Alcohol Use History: None Reported, Rare Past Drug Use History: None Reported - Past Family History Father Family Medical History: No Reported History Mother Additional Family Medical History / Comment(s): History of skin cancer Sister(s) Family Medical History: No Reported History Medications and Allergies Home Medications Medication Instructions Recorded Confirmed Type No Known Home Medications 08/13/20 08/13/20 History Allergies Allergy/AdvReac Type Severity Reaction Status Date / Time No Known Allergies Allergy Verified 08/13/20 09:56 Surgical - Exam Vital Signs Temp Pulse Resp BP Pulse Ox 98.3 F 89 20 126/74 96 08/13/20 05:37 08/13/20 05:37 08/13/20 05:37 08/13/20 05:37 08/13/20 05:37 - General well developed, well nourished, no distress, no pain, obese - Eyes PERRL, normal ocular movement - ENT normal pinna, normal nares, normal mucosa, no hearing loss, no congestion - Neck Neck is supple, no JVD. no masses, no bruits, trachea midline, no venous distension - Respiratory Lungs sounds essentially clear to his right lobes, diminished to absent air entry to his left lobes. No wheezes, rhonchi or crackles. Respirations are symmetrical and nonlabored. Achieving 750 mL on his incentive spirometry. Oxygen saturation is 96% on 2 L nasal cannula. - Cardiovascular Regular rhythm and rate. S1 and S2 present, negative for S3, gallop or murmur. No edema present. - Abdomen Abdomen soft, nontender and nondistended. Active bowel sounds present in all 4 abdominal quadrants. No guarding or rigidity. No organomegaly appreciated. - Genitourinary Deferred - Rectum Deferred - Integumentary no rash, no growths, no abnormal pigmentation - Neurologic Cranial nerves II through XII intact. No motor or focal deficits. - Musculoskeletal Moves all 4 extremities appropriately. Equal strength bilateral. - Psychiatric oriented to time, oriented to person, oriented to place, speech is normal, memory intact Results - Labs 08/15/20 05:54 08/15/20 05:54 Abnormal Lab Results - Last 24 Hours (Table) 08/15/20 08/15/20 Range/Units 05:54 05:54 WBC 17.6 H (3.8-10.6) k/uL Neutrophils # 14.9 H (1.3-7.7) k/uL BUN/Creatinine Ratio 23.75 H (12.00-20.00) Ratio Glucose 121 H (70-110) mg/dL Calcium 8.4 L (8.7-10.3) mg/dL Total Protein 5.5 L (6.2-8.2) g/dL Albumin 3.70 L (3.80-4.90) g/dL Microbiology - Last 24 Hours (Table) 08/13/20 07:44 Blood Culture - Preliminary Blood No Growth after 48 hours 08/14/20 12:00 Gram Stain - Preliminary Pleural Fluid Body Fluid Culture - Preliminary 08/14/20 12:00 Acid Fast Bacilli Culture - Preliminary Pleural Fluid 08/14/20 12:00 Fungal Culture - Preliminary Pleural Fluid Diabetes panel 08/15/20 Range/Units 05:54 Sodium 141 (135-145) mmol/L Potassium 4.3 (3.5-5.5) mmol/L Chloride 104 (96-109) mmol/L Carbon Dioxide 26.7 (21.6-31.8) mmol/L BUN 19.0 (9.0-27.0) mg/dL Creatinine 0.8 (0.6-1.5) mg/dL Glucose 121 H (70-110) mg/dL Calcium 8.4 L (8.7-10.3) mg/dL AST 27 (14-35) U/L ALT 33 (10-49) U/L Alkaline Phosphatase 94 (41-126) U/L Total Protein 5.5 L (6.2-8.2) g/dL Albumin 3.70 L (3.80-4.90) g/dL Calcium panel 08/15/20 Range/Units 05:54 Calcium 8.4 L (8.7-10.3) mg/dL Albumin 3.70 L (3.80-4.90) g/dL Pituitary panel 08/15/20 Range/Units 05:54 Sodium 141 (135-145) mmol/L Potassium 4.3 (3.5-5.5) mmol/L Chloride 104 (96-109) mmol/L Carbon Dioxide 26.7 (21.6-31.8) mmol/L BUN 19.0 (9.0-27.0) mg/dL Creatinine 0.8 (0.6-1.5) mg/dL Glucose 121 H (70-110) mg/dL Calcium 8.4 L (8.7-10.3) mg/dL Adrenal panel 08/15/20 Range/Units 05:54 Sodium 141 (135-145) mmol/L Potassium 4.3 (3.5-5.5) mmol/L Chloride 104 (96-109) mmol/L Carbon Dioxide 26.7 (21.6-31.8) mmol/L BUN 19.0 (9.0-27.0) mg/dL Creatinine 0.8 (0.6-1.5) mg/dL Glucose 121 H (70-110) mg/dL Calcium 8.4 L (8.7-10.3) mg/dL Total Bilirubin 0.7 (0.3-1.2) mg/dL AST 27 (14-35) U/L ALT 33 (10-49) U/L Alkaline Phosphatase 94 (41-126) U/L Total Protein 5.5 L (6.2-8.2) g/dL Albumin 3.70 L (3.80-4.90) g/dL - Imaging Chest x-ray: report reviewed, image reviewed CT scan - chest: report reviewed, image reviewed Assessment and Plan Assessment: 1. Left lower lobe pneumonia with parapneumonic pleural effusion, status post left-sided thoracentesis with 500 mL of thick yellow fluid drained on 08/14/2020 2. Febrile illness, related to above 3. Left chest discomfort likely related to parapneumonic pleural effusion 4. History of hyperlipidemia, untreated Plan: The patient was seen and examined at his bedside on the fourth floor medical surgical unit. His chart diagnostics were reviewed. His case was discussed in detail with Dr. Chaparro Walls from cardiothoracic surgery. He is scheduled for a computed tomography scan of his chest without contrast tomorrow 08/16/2020. Recommendations for continued antibiotics managed by infectious disease. Once his computed tomography scan of his chest has been completed and reviewed further recommendations to follow. Medical management and other comorbidities per primary care service. GI and DVT prophylaxis. Pain control per current when necessary orders. Encourage use of his incentive spirometry 10 times every hour while awake. Bronchodilator management per pulmonary medicine. More recommendations to follow based on patient's clinical course. Thank you Dr. Banks for this consult and we look forward to working with you in the care of this patient. Time with Patient: Greater than 30 <Chaparro Walls - Last Filed: 08/16/20 13:18> Surgical - Exam Vital Signs Temp Pulse Resp BP Pulse Ox 98.3 F 89 20 126/74 96 08/13/20 05:37 08/13/20 05:37 08/13/20 05:37 08/13/20 05:37 08/13/20 05:37 Results - Labs 08/15/20 05:54 08/15/20 05:54 Abnormal Lab Results - Last 24 Hours (Table) 08/15/20 Range/Units 05:54 BUN/Creatinine Ratio 23.75 H (12.00-20.00) Ratio Glucose 121 H (70-110) mg/dL Calcium 8.4 L (8.7-10.3) mg/dL Total Protein 5.5 L (6.2-8.2) g/dL Albumin 3.70 L (3.80-4.90) g/dL Microbiology - Last 24 Hours (Table) 08/14/20 12:00 Gram Stain - Preliminary Pleural Fluid Body Fluid Culture - Preliminary 08/13/20 07:44 Blood Culture - Preliminary Blood No Growth after 72 hours 08/14/20 12:00 Acid Fast Bacilli Smear - Final Pleural Fluid Acid Fast Bacilli Culture - Preliminary Diabetes panel 08/15/20 Range/Units 05:54 Sodium 141 (135-145) mmol/L Potassium 4.3 (3.5-5.5) mmol/L Chloride 104 (96-109) mmol/L Carbon Dioxide 26.7 (21.6-31.8) mmol/L BUN 19.0 (9.0-27.0) mg/dL Creatinine 0.8 (0.6-1.5) mg/dL Glucose 121 H (70-110) mg/dL Calcium 8.4 L (8.7-10.3) mg/dL AST 27 (14-35) U/L ALT 33 (10-49) U/L Alkaline Phosphatase 94 (41-126) U/L Total Protein 5.5 L (6.2-8.2) g/dL Albumin 3.70 L (3.80-4.90) g/dL Calcium panel 08/15/20 Range/Units 05:54 Calcium 8.4 L (8.7-10.3) mg/dL Albumin 3.70 L (3.80-4.90) g/dL Pituitary panel 08/15/20 Range/Units 05:54 Sodium 141 (135-145) mmol/L Potassium 4.3 (3.5-5.5) mmol/L Chloride 104 (96-109) mmol/L Carbon Dioxide 26.7 (21.6-31.8) mmol/L BUN 19.0 (9.0-27.0) mg/dL Creatinine 0.8 (0.6-1.5) mg/dL Glucose 121 H (70-110) mg/dL Calcium 8.4 L (8.7-10.3) mg/dL Adrenal panel 08/15/20 Range/Units 05:54 Sodium 141 (135-145) mmol/L Potassium 4.3 (3.5-5.5) mmol/L Chloride 104 (96-109) mmol/L Carbon Dioxide 26.7 (21.6-31.8) mmol/L BUN 19.0 (9.0-27.0) mg/dL Creatinine 0.8 (0.6-1.5) mg/dL Glucose 121 H (70-110) mg/dL Calcium 8.4 L (8.7-10.3) mg/dL Total Bilirubin 0.7 (0.3-1.2) mg/dL AST 27 (14-35) U/L ALT 33 (10-49) U/L Alkaline Phosphatase 94 (41-126) U/L Total Protein 5.5 L (6.2-8.2) g/dL Albumin 3.70 L (3.80-4.90) g/dL
[2020-08-16] MEDS: KETOROLAC 15 MG/ML 1 ML VIAL IVP PRN ×3 (04:05→22:02)
[2020-08-16] MEDS: AZITHROMYCIN 500 MG TAB PO SCH (07:49)
[2020-08-16] MEDS: FAMOTIDINE 20 MG TAB PO SCH ×2 (07:49→20:09)
[2020-08-16] MEDS: ENOXAPARIN 40 MG/0.4 ML SYRINGE SQ SCH (07:49)
--- NOTE | 2020-08-16 08:47 | CT ---
EXAMINATION TYPE: CT chest wo con DATE OF EXAM: 08/16/2020 COMPARISON: Prior chest CT 08/13/2020, chest x-ray 08/14/2020 HISTORY: Pneumonia CT DLP: 562.6 mGycm. Automated Exposure Control for Dose Reduction was Utilized. TECHNIQUE: CT scan of the thorax is performed without IV contrast. FINDINGS: Lack of intravenous contrast could compromise sensitivity. LUNGS: Large left pleural effusion is present. There may be some loculation. There is associated comp ressive atelectasis or pneumonia present. The tracheobronchial tree is patent. Suspect minimal right pleural effusion and associated atelectasis MEDIASTINUM: Lack of IV contrast is noted to limit evaluation for mediastinal and especially hilar ad enopathy. There are no definitive greater than 1 cm hilar or mediastinal lymph nodes. No cardiomega ly or sizable pericardial effusion is seen, minimal pericardial fluid suspected. OTHER: No additional significant abnormality is seen. IMPRESSION: Large left pleural effusion and associated atelectasis versus pneumonia.
[2020-08-16] MEDS: IPRATROPIUM-ALBUTEROL 3 ML NEB INHALATION PRN ×2 (08:57→21:04)
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
[2020-08-16] MEDS ORDERED: ALTEPLASE 10 MG in SODIUM CHLORIDE 0.9% 100 ML IRRIGATION ONE (10:15)
[2020-08-16] MEDS: ACETAMINOPHEN TAB 325 MG TAB PO PRN (11:14)
--- NOTE | 2020-08-16 14:28 | P.PN ---
Subjective 50-year-old male came in with compensative shortness of breath and left-sided chest pain. Patient was exposed to family members with Covid 19 in April. Patient was comparing of cough unable to bring up anything. Patient was found to have fevers patient had a CT angiogram of the chest which did not show any embolism but patient does have left-sided pneumonia appears to be lobar pneumonia along with pleural effusion which is contributing to his chest pain. Patient has progressed from 0.5 patient was started on azithromycin and ceftriaxone. Covid 19 PCR is pending. Patient had one set of troponin which was negative patient chest pain is pleuritic in nature 08/14/2020 Patient is seen on follow-up, remains on 2 L nasal cannula. Chest x-ray today showed worsening right-sided pleural effusion, he had thoracentesis done by pulmonary with 500 mL of purulent yellow fluid removed. He is currently afebrile, however was running fever of 101.1 yesterday evening. He is on antimicrobial therapy with azithromycin and Rocephin. He does report having some chest discomfort, however it is improved as compared to yesterday. 08/15/2020 Patient is having fever today up any repeat CAT scan tomorrow. Patient had empyema and parapneumonic effusion. Patient is negative for Covid 19. 08/16/2020 Repeat computed tomography scan showed large pleural effusion patient the will undergo chest tube placement. Constitutional: Denied any fatigue denied any fever. Cardio vascular: denied any chest pain, palpitations Gastrointestinal denied any nausea vomiting Pulmonary: As mentioned in HPI Neurologic denied any new focal deficits All inpatient medications were reviewed and appropriate changes in these medications as dictated in the interval history and assessment and plan. Objective - Vital Signs Vital signs: Vital Signs Temp 98.0 F 08/16/20 07:00 Pulse 95 08/16/20 14:20 Resp 18 08/16/20 14:20 BP 112/69 08/16/20 14:20 Pulse Ox 95 08/16/20 14:20 Intake & Output 08/15/20 08/16/20 08/16/20 18:59 06:59 18:59 Intake Total 1050 300 Output Total 2 Balance 1050 298 Intake: Intake, IV Titration 250 Amount Azithromycin 500 mg In 250 Sodium Chloride 0.9% 250 ml @ 250 mls/hr IVPB DAILY [facility] Rx#:[id number] Oral 800 300 Output: Urine 2 Other: Voiding Method Toilet # Voids 1 # Bowel Movements 1 - Exam PHYSICAL EXAMINATION: GENERAL: The patient is alert and oriented x3, not in any acute distress. Well developed, well nourished. HEENT: Pupils are round and equally reacting to light. EOMI. No scleral icterus. No conjunctival pallor. Normocephalic, atraumatic. No pharyngeal erythema. No thyromegaly. CARDIOVASCULAR: S1 and S2 present. No murmurs, rubs, or gallops. PULMONARY: Decreased air entry into bilateral lung mercado no significant wheezing or crackles ABDOMEN: Soft, nontender, nondistended, normoactive bowel sounds. No palpable organomegaly. MUSCULOSKELETAL: No joint swelling or deformity. EXTREMITIES: No cyanosis, clubbing, or pedal edema. NEUROLOGICAL: Gross neurological examination did not reveal any focal deficits. SKIN: No rashes. - Labs CBC & Chem 7: 08/15/20 05:54 08/15/20 05:54 Labs: Abnormal Lab Results - Last 24 Hours (Table) 08/15/20 Range/Units 05:54 BUN/Creatinine Ratio 23.75 H (12.00-20.00) Ratio Glucose 121 H (70-110) mg/dL Calcium 8.4 L (8.7-10.3) mg/dL Total Protein 5.5 L (6.2-8.2) g/dL Albumin 3.70 L (3.80-4.90) g/dL Microbiology - Last 24 Hours (Table) 08/14/20 12:00 Gram Stain - Preliminary Pleural Fluid Body Fluid Culture - Preliminary 08/13/20 07:44 Blood Culture - Preliminary Blood No Growth after 72 hours 08/14/20 12:00 Acid Fast Bacilli Smear - Final Pleural Fluid Acid Fast Bacilli Culture - Preliminary Assessment and Plan Plan: -Community-acquired pneumonia with parapneumonic effusion and empyema: Most probably pneumococcal pneumonia. Cultures are pending patient had exudative pleural effusion. Continue with Rocephin and azithromycin. Patient is negative for Covid 19 which was ruled out -Left-sided chest pain pleuritic in nature secondary to pneumonia and parapneumonic effusion/empyema -Acute hypoxic respiratory failure secondary to pneumonia And left-sided parapneumonic effusion: Continue on above-mentioned antimicrobial therapy, S/P L-thoracentesis 500 ml purulent yellow fluid off, she is presently on room air , patient has recurrence of pleural effusion because of which patient will undergo pigtail catheter placement cultures from the pleural fluid is pending for fluid analysis is consistent with exudative effusion -Rule out PE -DVT prophylaxis with Lovenox, GI prophylaxis Pepcid
--- NOTE | 2020-08-16 15:28 | P.PN ---
Subjective Progress Note Date: 08/16/20 Principal diagnosis: Community acquired pneumonia, parapneumonic effusion This is a pleasant 50-year-old gentleman with no current primary care provider. No current home medications. He presented here to the emergency room yesterday with complaints of increasing left-sided chest discomfort and shortness of breath. He states he was exposed to CoVID 19 back in April and feels like he had it at that time. He was tested negative but his [id number]-[id number] tested positive. He's had recently moved here from the [facility]. CT angiogram revealed no evidence of acute pulmonary embolism. There is cardiomegaly with a small to moderate left sided pleural effusion and associated left lung compressive atelectasis/infiltrate and he has a temperature of 99.9. Maintaining O2 sat urations in the mid 90s on 2 L/m per nasal cannula. He is hemodynamically stable. He is seen today in consultation on the regular medical floor. Awake and alert in no acute distress. White count 19.2. Hemoglobin 14.6. D-dimer 0.94. Sodium 137. Potassium 4.4. Creatinine 0.96. LDH 409. Troponin negative 1. C-reactive protein 53.7. ProBNP 18. Pro-calcitonin 0.50. He's been initiated on ceftriaxone and azithromycin. CoVID 19 by PCR pending. The patient is seen today 08/14/2020 in follow-up on the regular medical floor. He is currently sitting up in a chair at the bedside. Awake and alert in no acute distress. Maintaining O2 saturations in the 90s on 2 L/m per nasal cannula. He is afebrile. Hemodynamically stable. Covid 19 by PCR test still pending. Blood culture reveals no growth to date. Chest x-ray reveals worsening moderate-sized left pleural effusion with associated atelectasis/consolidation. New patchy right basilar atelectasis/infiltrate. Cardiomegaly and chronic emphysematous changes. He does have a T-max of 101.0 last evening. Continued on ceftriaxone and azithromycin along with bronchodilators. On 08/15/2020 patient seen in follow-up and regular medical floor. Patient is awake and alert, in no acute distress, room air pulse ox is 95%, does get short of breath with activity, with slight left-sided chest discomfort. Patient status post left-sided thoracentesis by Dr. Mcqueen, and pleural fluid analysis showed exudative fluid likely related to parapneumonic pleural effusion. Chest x-ray yesterday showed persistent moderate left-sided pleural effusion with associated left lung atelectasis and/or consolidation. Patient is on a combination of azithromycin and Rocephin for antibiotic coverage. Today's labs have been reviewed, patient has elevated white blood cell count of 17.6, hemoglobin is 13.6, no CMP, coronavirus PCR was negative. Gram stain of the pleural fluid has shown no organisms, culture is pending. Blood cultures show no growth. Patient has been afebrile overnight. On 08/16/2020 patient is seen in follow-up on the regular medical surgical floor. He is sitting up in the recliner, breathing comfortably, he remains on 2 L of oxygen pulse ox of 95-96%, did have low-grade fevers overnight, with a T- max of 100F. He remains on antibiotics, with azithromycin and Rocephin, will pleural fluid cultures remain negative at this point, Gram stain showing no organisms thus far. Cardiothoracic surgery has been consulted, and is planning on having interventional radiology place a detailed catheter for TPA infusion Objective - Vital Signs Vital signs: Vital Signs Temp 98.0 F 08/16/20 07:00 Pulse 95 08/16/20 14:20 Resp 18 08/16/20 14:20 BP 112/69 08/16/20 14:20 Pulse Ox 95 08/16/20 14:20 Intake & Output 08/15/20 08/16/20 08/16/20 18:59 06:59 18:59 Intake Total 1050 300 Output Total 2 Balance 1050 298 Intake: Intake, IV Titration 250 Amount Azithromycin 500 mg In 250 Sodium Chloride 0.9% 250 ml @ 250 mls/hr IVPB DAILY [facility] Rx#:[id number] Oral 800 300 Output: Urine 2 Other: Voiding Method Toilet # Voids 1 1 # Bowel Movements 1 - Exam GENERAL EXAM: Alert, very pleasant 50-year-old white female, on 2 L with a pulse ox of 95% comfortable in no apparent distress. HEAD: Normocephalic/atraumatic. EYES: Normal reaction of pupils, equal size. Conjunctiva pink, sclera white. NOSE: Clear with pink turbinates. THROAT: No erythema or exudates. NECK: No masses, no JVD, no thyroid enlargement, no adenopathy. CHEST: No chest wall deformity. Symmetrical expansion. LUNGS: Diminished to absent air entry over left lower lobe and left middle lung, with no crackles, wheeze, rhonchi or dullness. CVS: Regular rate and rhythm, normal S1 and S2, no gallops, no murmurs, no rubs ABDOMEN: Soft, nontender. No hepatosplenomegaly, normal bowel sounds, no guarding or rigidity. EXTREMITIES: No clubbing, no edema, no cyanosis, 2+ pulses and upper and lower extremities. MUSCULOSKELETAL: Muscle strength and tone normal. SPINE: No scoliosis or deformity SKIN: No rashes CENTRAL NERVOUS SYSTEM: Alert and oriented -3. No focal deficits, tone is normal in all 4 extremities. PSYCHIATRIC: Alert and oriented -3. Appropriate affect. Intact judgment and insight. - Labs CBC & Chem 7: 08/15/20 05:54 08/15/20 05:54 Labs: Abnormal Lab Results - Last 24 Hours (Table) 08/15/20 Range/Units 05:54 BUN/Creatinine Ratio 23.75 H (12.00-20.00) Ratio Glucose 121 H (70-110) mg/dL Calcium 8.4 L (8.7-10.3) mg/dL Total Protein 5.5 L (6.2-8.2) g/dL Albumin 3.70 L (3.80-4.90) g/dL Microbiology - Last 24 Hours (Table) 08/14/20 12:00 Gram Stain - Preliminary Pleural Fluid Body Fluid Culture - Preliminary 08/13/20 07:44 Blood Culture - Preliminary Blood No Growth after 72 hours 08/14/20 12:00 Acid Fast Bacilli Smear - Final Pleural Fluid Acid Fast Bacilli Culture - Preliminary Assessment and Plan Plan: Assessment: #1. Acute community-acquired left lower lobe pneumonia with parapneumonic pleural effusion, status post left-sided thoracentesis with removal of 500 mL of thick yellow fluid on 08/14/2020 which showed exudative fluid, with negative cultures to date, status post left pigtail chest tube placement by interventional radiology on 08/16/2020 #2. Left chest discomfort likely related to parapneumonic pleural effusion #3. Acute hypoxic rest or a failure secondary to the above #4. Febrile illness, improved Plan: Continue current medical treatment, continue current antibiotics, pleural fluid cultures remain negative to date, patient did have some low-grade fevers, await final cultures, patient is having interventional radiology place the pigtail catheter today with the plan of TPA infusion by cardiothoracic surgery. The fluid will be sent for cultures again. Follow-up blood work, repeat chest x- ray, monitor chest tube output, will follow cultures I performed a history & physical examination of the patient and discussed their management with my nurse practitioner, Tonia Mckee. I reviewed the nurse practitioner's note and agree with the documented findings and plan of care. Lung sounds are positive for diminished and absent breath sounds on the left. The findings and the impression was discussed with the patient. I attest to the documentation by the nurse practitioner. Time with Patient: Less than 30
--- NOTE | 2020-08-16 19:20 | CT ---
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 The risks, complications, benefits, and alternatives we re discussed and any questions were answered. Informed consent was obtained. Preprocedure preliminary imaging demonstrated large left pleural effusion. Maximal barrier technique was utilized. The skin over suitable path to the left pleural fluid was loc alized with CT and the overlying skin prepped and draped. Lidocaine was used for local anesthesia. A skin salbador made with a scalpel. Access was gained using CT guidance with a 5FR 10 cm one-step centesis catheter. A 0.035 inch wire was advanced and the access site was upsized. Subsequently an 10-FR coi led drain was deployed within the left pleural fluid. 20 cc of clear serous fluid was aspirated and s ent for laboratory analysis. Chest tube fixed in place with stay-fix device and the cathter was attac hed to Pleur-evac. No immediate complication. The patient remained in stable condition. Postprocedure imaging demonstrated no evidence of pneumothorax. Chest tube orders placed in patient's chart. IMPRESSION: Status post left CT-guided 10FR chest tube placement.
[2020-08-17] MEDS: KETOROLAC 15 MG/ML 1 ML VIAL IVP PRN ×3 (06:15→20:41)
[2020-08-17] MEDS ORDERED: ALTEPLASE 10 MG in SODIUM CHLORIDE 0.9% 100 ML IRRIGATION ONE (07:30)
--- NOTE | 2020-08-17 08:13 | XR ---
EXAMINATION TYPE: XR chest 1V portable DATE OF EXAM: 08/17/2020 CLINICAL HISTORY: Difficulty breathing and left-sided pleural effusion progress study. TECHNIQUE: Single AP portable upright view of the chest is obtained. COMPARISON: Chest x-ray from [address] chest yesterday. FINDINGS: There is no lateral left basilar pleural pigtail drainage catheter. Interval improvement i n pleural fluid collection at this level. There is persistent moderate lateral pleural fluid collecti on suggesting nonsimple fluid collection along with persistent basilar horizontal opacity or suspecte d nonsimple pleural fluid, possibly loculated fluid collections. Right lung is predominantly clear. C ardiac silhouette size is stable and enlarged with atherosclerotic aorta causing right-sided tracheal deviation. Osseous structures are intact. IMPRESSION: Some improvement in left-sided pleural pigtail pleural drainage catheter placement. Chron ic parenchymal changes and cardiomegaly with persistent [id number] left lateral and basilar pl eural fluid collections.
[2020-08-17] MEDS: ENOXAPARIN 40 MG/0.4 ML SYRINGE SQ SCH (08:41)
[2020-08-17] MEDS: AZITHROMYCIN 500 MG TAB PO SCH (08:41)
[2020-08-17] MEDS: FAMOTIDINE 20 MG TAB PO SCH ×2 (08:41→20:41)
--- NOTE | 2020-08-17 09:45 | P.PN ---
Subjective Progress Note Date: 08/17/20 Principal diagnosis: Left parapneumonic large effusion/empyema. Past medical history significant for hyperlipidemia and is a lifetime nonsmoker. POD #1 placement of left chest pleural pigtail catheter placed by interventional radiology. The patient was seen in follow-up today 08/17/2020 at his bedside on the medical surgical unit. The patient is currently sitting up to the bedside chair, is awake, alert and oriented 3 and is in no acute distress. He reports that he feels like his breathing is much improved since having the left chest pigtail catheter placed yesterday. He did receive a dose of alteplase pleural instillation 10 mg/100 mL of normal saline with 1 L of thin serosanguineous drainage drained since the pigtail catheter was placed yesterday. Oxygen satura tion are 97% on 2 L nasal cannula. Achieving 1000 mL on his incentive spirometry with encouragement. He is complaining of some scant blood to his Kleenex this morning when blowing his nose. He feels like the oxygen is drying his nose. He has been ambulating in his room with minimal assistance from nursing staff. A chest x-ray was completed this morning which shows some improvement in his left-sided pleural fluid collection. It also shows a persistent moderate lateral pleural fluid collection. Objective - Vital Signs Vital signs: Vital Signs Temp 98.1 F 08/17/20 07:38 Pulse 79 08/17/20 07:38 Resp 17 08/17/20 09:00 BP 142/84 08/17/20 07:38 Pulse Ox 97 08/17/20 07:38 Intake & Output 08/16/20 08/17/20 08/17/20 18:59 06:59 18:59 Intake Total 250 Output Total 350 Balance -100 Intake: Oral 250 Output: Chest Tube Drainage 350 left posterior chest 350 Other: Voiding Method Toilet Toilet # Voids 1 1 - Constitutional General appearance: Present: cooperative, no acute distress, obese - EENT Eyes: Present: PERRLA, normal appearance. Absent: scleral icterus ENT: Present: hearing grossly normal - Neck Details: Neck is supple, no JVD. No lymphadenopathy. - Respiratory Details: Lung sounds are essentially clear to his right lobes, diminished air entry to his left lobes. No wheezes, rhonchi or crackles. Respirations are symmetrical and nonlabored. Achieving 1000 mL on his incentive spirometry. Oxygen saturations 97% on 2 L nasal cannula. - Cardiovascular Details: Regular rhythm and rate. S1 and S2 present, negative for S3, gallop or murmur. No edema present. - Gastrointestinal Gastrointestinal Comment(s): Abdomen is soft, nontender and nondistended. Active bowel sounds present in all 4 abdominal quadrants. No guarding or rigidity. No organomegaly appreciated. Tolerating oral intake. - Genitourinary Genitourinary Comment(s): Continues to void. - Integumentary Integumentary Comment(s): Skin is warm and dry. No clubbing or cyanosis is present. No rash or abnormal pigmentation is present. Dressing is clean, dry and intact to his left chest pigtail insertion site. - Neurologic Neurologic: Present: CNII-XII intact - Musculoskeletal Musculoskeletal: Present: gait normal, strength equal bilaterally - Psychiatric Psychiatric: Present: A&O x's 3, appropriate affect, intact judgment & insight - Allied health notes Allied health notes reviewed: nursing - Labs CBC & Chem 7: 08/15/20 05:54 08/15/20 05:54 Labs: Microbiology - Last 24 Hours (Table) 08/16/20 14:31 Gram Stain - Preliminary Pleural Fluid Body Fluid Culture - Preliminary 08/16/20 14:31 Anaerobic Culture - Preliminary Pleural Fluid 08/14/20 12:00 Gram Stain - Preliminary Pleural Fluid Body Fluid Culture - Preliminary 08/13/20 07:44 Blood Culture - Preliminary Blood No Growth after 72 hours - Imaging and Cardiology Chest x-ray: report reviewed, image reviewed Assessment and Plan Assessment: 1. Left lower lobe pneumonia with large parapneumonic pleural effusion, status post left-sided thoracentesis with 500 mL of thick yellow fluid drained on 08/14/2020, status post left pleural pigtail catheter placement placed by interventional radiology on 08/16/2020. Status post alteplase 10 mg/100 mL normal saline second dose given today 08/17/2020. 2. Febrile illness, related to above, resolved 3. Left chest discomfort likely related to parapneumonic pleural effusion 4. History of hyperlipidemia, untreated Plan: 1. We will instill alteplase pleural instillation 10 mg/100 mL of normal saline to his left chest pigtail catheter. This will be his second dose today 08/17/2020. 3. Increase activity as tolerated, out of bed for all meals. 4. GI and DVT prophylaxis. 5. Bronchodilators for pulmonary/critical care medicine management. 6. Medical management and other comorbidities per primary care service. 7. We will continue to follow his labs and daily chest x-rays. 8. Antibiotic management per infectious disease recommendations. 9. Pleural fluid cultures remain pending, preliminary results show many polymorphonuclear leukocytes and no organisms seen. We will continue to follow the pleural fluid cultures. 10. Pain control per current when necessary orders. 11. Encourage use of his incentive spirometry 10 times every hour while awake. 12. More recommendations to follow based on patient's clinical course. Nurse practitioner note has been reviewed by the physician. Signing provider a grees with the above documented findings, assessment and plan of care. Time with Patient: Greater than 30
--- NOTE | 2020-08-17 13:56 | P.PN ---
Subjective Progress Note Date: 08/17/20 Principal diagnosis: Community-acquired pneumonia This is a pleasant 50-year-old gentleman with no current primary care provider. No current home medications. He presented here to the emergency room yesterday with complaints of increasing left-sided chest discomfort and shortness of breath. He states he was exposed to CoVID 19 back in April and feels like he had it at that time. He was tested negative but his kauwyw-[id number] tested positive. He's had recently moved here from the [facility]. CT angiogram revealed no evidence of acute pulmonary embolism. There is cardiomegaly with a small to moderate left sided pleural effusion and associated left lung compressive a telectasis/infiltrate and he has a temperature of 99.9. Maintaining O2 saturations in the mid 90s on 2 L/m per nasal cannula. He is hemodynamically stable. He is seen today in consultation on the regular medical floor. Awake and alert in no acute distress. White count 19.2. Hemoglobin 14.6. D-dimer 0.94. Sodium 137. Potassium 4.4. Creatinine 0.96. LDH 409. Troponin negative 1. C-reactive protein 53.7. ProBNP 18. Pro-calcitonin 0.50. He's been initiated on ceftriaxone and azithromycin. CoVID 19 by PCR pending. The patient is seen today 08/14/2020 in follow-up on the regular medical floor. He is currently sitting up in a chair at the bedside. Awake and alert in no acute distress. Maintaining O2 saturations in the 90s on 2 L/m per nasal cannula. He is afebrile. Hemodynamically stable. Covid 19 by PCR test still pending. Blood culture reveals no growth to date. Chest x-ray reveals worsening moderate-sized left pleural effusion with associated atelectasis/consolidation. New patchy right basilar atelectasis/infiltrate. Cardiomegaly and chronic emphysematous changes. He does have a T-max of 101.0 last evening. Continued on ceftriaxone and azithromycin along with bronchodilators. On 08/15/2020 patient seen in follow-up and regular medical floor. Patient is awake and alert, in no acute distress, room air pulse ox is 95%, does get short of breath with activity, with slight left-sided chest discomfort. Patient status post left-sided thoracentesis by Dr. Mcqueen, and pleural fluid analysis showed exudative fluid likely related to parapneumonic pleural effusion. Chest x-ray yesterday showed persistent moderate left-sided pleural effusion with associated left lung atelectasis and/or consolidation. Patient is on a combination of azithromycin and Rocephin for antibiotic coverage. Today's labs have been reviewed, patient has elevated white blood cell count of 17.6, hemoglobin is 13.6, no CMP, coronavirus PCR was negative. Gram stain of the pleural fluid has shown no organisms, culture is pending. Blood cultures show no growth. Patient has been afebrile overnight. On 08/16/2020 patient is seen in follow-up on the regular medical surgical floor . He is sitting up in the recliner, breathing comfortably, he remains on 2 L of oxygen pulse ox of 95-96%, did have low-grade fevers overnight, with a T-max of 100F. He remains on antibiotics, with azithromycin and Rocephin, will pleural fluid cultures remain negative at this point, Gram stain showing no organisms thus far. Cardiothoracic surgery has been consulted, and is planning on having interventional radiology place a detailed catheter for TPA infusion. The patient is seen today 08/17/2020 in follow-up on the regular medical floor. He is currently sitting up in a chair at the bedside. Awake and alert in no acute distress. He denies any worsening shortness of breath, cough or co ngestion. Chest x-ray reveals some improvement in the left-sided pleural fluid. Pigtail remains in place. He did receive alteplase again today. Additional 200 ML's out of the chest tube today. Cytology revealed no evidence of malignancy. Cultures are pending. Remains on ceftriaxone and azithromycin. Objective - Vital Signs Vital signs: Vital Signs Temp 98.1 F 08/17/20 07:38 Pulse 79 08/17/20 07:38 Resp 17 08/17/20 09:00 BP 142/84 08/17/20 07:38 Pulse Ox 97 08/17/20 07:38 Intake & Output 08/16/20 08/17/20 08/17/20 18:59 06:59 18:59 Intake Total 250 200 Output Total 350 Balance -100 200 Intake: Oral 250 200 Output: Chest Tube Drainage 350 left posterior chest 350 Other: Voiding Method Toilet Toilet # Voids 1 1 1 - Exam GENERAL EXAM: Alert, active, pleasant 50-year-old gentleman, on 2 L nasal cannula, comfortable in no apparent distress. HEAD: Normocephalic. EYES: Normal reaction of pupils, equal size. NOSE: Clear with pink turbinates. THROAT: No erythema or exudates. NECK: No masses, no JVD. CHEST: No chest wall deformity. LUNGS: Equal air entry with crackles in the posterior bases, left greater than right CVS: S1 and S2 normal with no audible murmur, regular rhythm. ABDOMEN: No hepatosplenomegaly, normal bowel sounds, no guarding or rigidity. SPINE: No scoliosis or deformity SKIN: No rashes CENTRAL NERVOUS SYSTEM: No focal deficits, tone is normal in all 4 extremities. EXTREMITIES: There is no peripheral edema. No clubbing, no cyanosis. Peripheral pulses are intact. - Labs CBC & Chem 7: 08/15/20 05:54 08/15/20 05:54 Labs: Microbiology - Last 24 Hours (Table) 08/14/20 12:00 Gram Stain - Preliminary Pleural Fluid Body Fluid Culture - Preliminary 08/13/20 07:44 Blood Culture - Preliminary Blood No Growth after 96 hours 08/16/20 14:31 Gram Stain - Preliminary Pleural Fluid Body Fluid Culture - Preliminary 08/16/20 14:31 Anaerobic Culture - Preliminary Pleural Fluid Assessment and Plan Assessment: 1 Acute community-acquired left lower lobe pneumonia, and associated pleural effusion, status post thoracentesis, status post pigtail placement and has received 2 doses of alteplase. Improved clinically and radiographically. 2 Left-sided chest discomfort secondary to above, improved 3 Acute hypoxemic respiratory failure secondary to above, improved on 2 L 4 Febrile illness secondary to above, recovered Plan: The patient was seen and evaluated by Dr. Banks Alteplase infused again today Chest x-ray improving Continue ceftriaxone and azithromycin, bronchodilators We will continue to follow and make further recommendations based on his clinical status. I, the cosigning physician, performed a history & physical examination of the patient. Lungs sounds with bibasilar crackles, left greater than right, dimin ished Maintaining good O2 saturations in the 90s on 2 L/m per nasal cannula. I discussed the assessment and plan of care with my nurse practitioner, Naomie Medrano. I attest to the above note as dictated by her.
--- NOTE | 2020-08-18 01:28 | P.PN ---
Subjective Progress Note Date: 08/17/20 50-year-old male came in with compensative shortness of breath and left-sided chest pain. Patient was exposed to family members with Covid 19 in April. Patient was comparing of cough unable to bring up anything. Patient was found to have fevers patient had a CT angiogram of the chest which did not show any embolism but patient does have left-sided pneumonia appears to be lobar pneumonia along with pleural effusion which is contributing to his chest pain. Patient has progressed from 0.5 patient was started on azithromycin and ceftriaxone. Covid 19 PCR is pending. Patient had one set of troponin which was negative patient chest pain is pleuritic in nature 08/14/2020 Patient is seen on follow-up, remains on 2 L nasal cannula. Chest x-ray today showed worsening right-sided pleural effusion, he had thoracentesis done by pulmonary with 500 mL of purulent yellow fluid removed. He is currently afebrile, however was running fever of 101.1 yesterday evening. He is on antimicrobial therapy with azithromycin and Rocephin. He does report having some chest discomfort, however it is improved as compared to yesterday. 08/15/2020 Patient is having fever today up any repeat CAT scan tomorrow. Patient had empyema and parapneumonic effusion. Patient is negative for Covid 19. 08/16/2020 Repeat computed tomography scan showed large pleural effusion patient the will undergo chest tube placement. 08/17/2020 Patient is currently sitting in the chair comfortably. Left-sided chest pigtail catheter is in place and draining serosanguineous fluid. Patient did receive alteplase again today. Fluid cultures negative so far and cytology showed no malignant cells. Patient has been afebrile. Chest x-ray showed some improvement in left-sided pleural pigtail pleural drainage catheter placement. Laboratory data showed WBC 17.6, hemoglobin 13.6 and platelets 291 Remaining laboratory data reviewed. Fluid LDH 988. COVID-[address] PCR negative. [address] and CT surgery is following. Constitutional: Denied any fatigue denied any fever. Cardio vascular: denied any chest pain, palpitations Gastrointestinal denied any nausea vomiting Pulmonary: As mentioned in HPI Neurologic denied any new focal deficits All inpatient medications were reviewed and appropriate changes in these medications as dictated in the interval history and assessment and plan. Objective - Vital Signs Vital signs: Vital Signs Temp 98.8 F 08/17/20 14:23 Pulse 99 08/17/20 14:23 Resp 17 08/17/20 16:00 BP 146/88 08/17/20 14:23 Pulse Ox 97 08/17/20 14:23 Intake & Output 08/16/20 08/17/20 08/17/20 18:59 06:59 18:59 Intake Total 250 380 Output Total 350 1000 Balance -100 -620 Intake: Oral 250 380 Output: Chest Tube Drainage 350 1000 left posterior chest 350 1000 Other: Voiding Method Toilet Toilet # Voids 1 1 1 - Exam PHYSICAL EXAMINATION: GENERAL: The patient is alert and oriented x3, not in any acute distress. Well developed, well nourished. HEENT: Pupils are round and equally reacting to light. EOMI. No scleral icterus. No conjunctival pallor. Normocephalic, atraumatic. No pharyngeal erythema. No thyromegaly. CARDIOVASCULAR: S1 and S2 present. No murmurs, rubs, or gallops. PULMONARY: Decreased air entry into bilateral lung mercado no significant wheezing or crackles , Left sided Pigtail cath in place. ABDOMEN: Soft, nontender, nondistended, normoactive bowel sounds. No palpable organomegaly. MUSCULOSKELETAL: No joint swelling or deformity. EXTREMITIES: No cyanosis, clubbing, or pedal edema. NEUROLOGICAL: Gross neurological examination did not reveal any focal deficits. SKIN: No rashes. - Labs CBC & Chem 7: 08/15/20 05:54 08/15/20 05:54 Labs: Microbiology - Last 24 Hours (Table) 08/14/20 12:00 Gram Stain - Preliminary Pleural Fluid Body Fluid Culture - Preliminary 08/13/20 07:44 Blood Culture - Preliminary Blood No Growth after 96 hours 08/16/20 14:31 Gram Stain - Preliminary Pleural Fluid Body Fluid Culture - Preliminary 08/16/20 14:31 Anaerobic Culture - Preliminary Pleural Fluid Assessment and Plan Assessment: -Community-acquired pneumonia with parapneumonic effusion and empyema: Most probably pneumococcal pneumonia. status post pigtail placement and has received 2 doses of alteplase. Cultures are pending patient had exudative pleural effusion. Continue with Rocephin and azithromycin. Patient is negative for Covid 19 which was ruled out -Left-sided chest pain pleuritic in nature secondary to pneumonia and parapneumonic effusion/empyema -Acute hypoxic respiratory failure secondary to pneumonia And left-sided parapneumonic effusion: Continue on above-mentioned antimicrobial therapy, S/P L-thoracentesis 500 ml purulent yellow fluid off, she is presently on room air , patient has recurrence of pleural effusion because of which patient will undergo pigtail catheter placement cultures from the pleural fluid is pending for fluid analysis is consistent with exudative effusion -Rule out PE -DVT prophylaxis with Lovenox, GI prophylaxis Pepcid Time with Patient: Greater than 30
[2020-08-18 07:00] LABS: Basophils # (A) 0.1 k/uL (0-0.2); Basophils % (A) 1 %; Eosinophils # (A) 0.3 k/uL (0-0.7); Eosinophils % (A) 3 %; HCT 43.3 % (39.0-53.0); HGB 14.2 gm/dL (13.0-17.5); Lymphocytes # (A) 1.6 k/uL (1.0-4.8); Lymphocytes % (A) 13 %; MCH 31.5 pg (25.0-35.0); MCHC 32.9 g/dL (31.0-37.0); MCV 95.6 fL (80.0-100.0); Mean Platelet Volume 8.7; Monocytes # (A) 0.7 k/uL (0-1.0); Monocytes % (A) 6 %; Neutrophils # (A) 9.3 k/uL (1.3-7.7); Neutrophils % (A) 76 %; Platelet Count 390 k/uL (150-450); RBC 4.53 m/uL (4.30-5.90); RDW 12.2 % (11.5-15.5); WBC 12.2 k/uL (3.8-10.6)
[2020-08-18] MEDS: FAMOTIDINE 20 MG TAB PO SCH ×2 (07:22→20:03)
[2020-08-18] MEDS: AZITHROMYCIN 500 MG TAB PO SCH (07:22)
[2020-08-18] MEDS: ENOXAPARIN 40 MG/0.4 ML SYRINGE SQ SCH (07:23)
--- NOTE | 2020-08-18 08:57 | XR ---
EXAMINATION TYPE: XR chest 1V portable DATE OF EXAM: 08/18/2020 Comparison: 08/17/2020 Clinical History: 50-year-old male Left pleural effusion Findings: Heart borderline enlarged. Mild diffuse interstitial density. Left basilar pigtail pleural catheter i s present. Improving pleural based density in the periphery of the left mid and lower lung. Residual small left effusion remains with patchy left basilar opacity. Impression: 1. Borderline heart size and mild interstitial density. Correlate to exclude mild pulmonary vascular congestion, similar to prior. 2. Pigtail pleural catheter at the left base with improving pleural-based density on the left, probab le improving loculated pleural effusion. Small effusion with adjacent atelectasis and/or consolidatio n remains.
[2020-08-18] MEDS ORDERED: ALTEPLASE 10 MG in SODIUM CHLORIDE 0.9% 100 ML IRRIGATION ONE (09:30)
[2020-08-18 09:43] LABS: African American GFR (CKD) 121.6 (60.0-200.0); Anion Gap 12.9 mmol/L (4.00-12.00); BUN/Creat Ratio 22.5 Ratio (12.00-20.00); Carbon Dioxide 28.1 mmol/L (21.6-31.8); Non-African American GFR(CKD) 104.9 (60.0-200.0)
--- NOTE | 2020-08-18 11:03 | P.PN ---
Subjective Progress Note Date: 08/18/20 Principal diagnosis: Left parapneumonic large effusion/empyema. Past medical history significant for hyperlipidemia and is a lifetime nonsmoker. POD #2 placement of left chest pleural pigtail catheter placed by interventional radiology. The patient currently ambulating in his room in no acute distress. Denies chest pain or shortness of breath. States he feels much better than yesterday. Left- sided pigtail in place with excellent drainage from alteplase instillation. Ermelinda yin is asking if he can go home. He has remained afebrile for more than 24 hours. White blood cell count 12.2, was 17.6 yesterday. CRP 11, was 53.7 on 08/13. Chest x-ray demonstrates good drainage with some re-expansion of the lung. Objective - Vital Signs Vital signs: Vital Signs Temp 97.6 F 08/18/20 08:13 Pulse 94 08/18/20 08:13 Resp 16 08/18/20 08:13 BP 130/84 08/18/20 08:13 Pulse Ox 93 L 08/18/20 08:13 Intake & Output 08/17/20 08/18/20 08/18/20 18:59 06:59 18:59 Intake Total 380 Output Total 1000 200 Balance -620 -200 Intake: Oral 380 Output: Chest Tube Drainage 1000 200 left posterior chest 1000 200 Other: Voiding Method Toilet Toilet # Voids 1 2 - Constitutional General appearance: Present: cooperative, no acute distress - Respiratory Details: Lungs sounds diminished bilaterally, left greater than right. Respirations even, nonlabored. Currently on room air with oxygen saturation 93%. Left-sided pigtail present, connected to -20 cm continuous wall suction, no air leak present. Output 200 mL serous drainage overnight, 1200 mL in the last 24 hours. - Cardiovascular Details: S1, S2 present. Regular rate and rhythm. Palpable peripheral pulses bilaterally. No edema present. No calf pain or tenderness noted. - Gastrointestinal Gastrointestinal Comment(s): Abdomen soft, nontender, nondistended. Active bowel sounds present 4 quadrants. Tolerating diet. - Genitourinary Genitourinary Comment(s): Continues to void - Integumentary Integumentary Comment(s): Skin is warm and dry with evidence of good perfusion - Neurologic Neurologic: Present: CNII-XII intact - Musculoskeletal Musculoskeletal: Present: gait normal, strength equal bilaterally - Psychiatric Psychiatric: Present: A&O x's 3, appropriate affect, intact judgment & insight - Allied health notes Allied health notes reviewed: nursing - Labs CBC & Chem 7: 08/18/20 06:36 08/18/20 06:36 Labs: Abnormal Lab Results - Last 24 Hours (Table) 08/18/20 08/18/20 Range/Units 06:36 06:36 WBC 12.2 H (3.8-10.6) k/uL Neutrophils # 9.3 H (1.3-7.7) k/uL Anion Gap 12.90 H (4.00-12.00) mmol/L BUN/Creatinine Ratio 22.50 H (12.00-20.00) Ratio C-Reactive Protein 11.0 H (0.0-0.8) mg/dL Microbiology - Last 24 Hours (Table) 08/14/20 12:00 Gram Stain - Final Pleural Fluid Body Fluid Culture - Final 08/13/20 07:44 Blood Culture - Preliminary Blood No Growth after 120 hours 08/16/20 14:31 Gram Stain - Preliminary Pleural Fluid Body Fluid Culture - Preliminary - Imaging and Cardiology Chest x-ray: report reviewed, image reviewed Assessment and Plan Assessment: 1. Left lower lobe pneumonia with large parapneumonic pleural effusion, status post left-sided thoracentesis with 500 mL of thick yellow fluid drained on 08/14/2020, status post left pleural pigtail catheter placement placed by interventional radiology on 08/16/2020. Status post alteplase instillation 2. Febrile illness, related to above, resolved 3. Left chest discomfort likely related to parapneumonic pleural effusion 4. History of hyperlipidemia, untreated Plan: 1. Third dose of alteplase instilled today. 2. Encourage use of his incentive spirometry 10 times every hour while awake. 3. Increase activity, ambulate as tolerated 4. GI and DVT prophylaxis. 5. Bronchodilators per pulmonary/critical care medicine management. 6. We will continue to follow his labs and daily chest x-rays. 7. Antibiotic management per primary care 8. Initial pleural fluid cultures from thoracentesis reportedly have no growth. Preliminary cultures from fluid sent after pigtail catheter placement remain pending, Gram stain preliminary negative 9. Pain control per current when necessary orders. 10. Management of other medical comorbidities per primary care service 11. More recommendations to follow based on patient's clinical course. Seen and examined and agree with above Time with Patient: Greater than 30
--- NOTE | 2020-08-18 13:05 | P.PN ---
Subjective Progress Note Date: 08/18/20 Principal diagnosis: Community-acquired pneumonia This is a pleasant 50-year-old gentleman with no current primary care provider. No current home medications. He presented here to the emergency room yesterday with complaints of increasing left-sided chest discomfort and shortness of breath. He states he was exposed to CoVID 19 back in April and feels like he had it at that time. He was tested negative but his [id number] tested positive. He's had recently moved here from the [facility]. CT angiogram revealed no evidence of acute pulmonary embolism. There is cardiomegaly with a small to moderate left sided pleural effusion and associated left lung compressive a telectasis/infiltrate and he has a temperature of 99.9. Maintaining O2 saturations in the mid 90s on 2 L/m per nasal cannula. He is hemodynamically stable. He is seen today in consultation on the regular medical floor. Awake and alert in no acute distress. White count 19.2. Hemoglobin 14.6. D-dimer 0.94. Sodium 137. Potassium 4.4. Creatinine 0.96. LDH 409. Troponin negative 1. C-reactive protein 53.7. ProBNP 18. Pro-calcitonin 0.50. He's been initiated on ceftriaxone and azithromycin. CoVID 19 by PCR pending. The patient is seen today 08/14/2020 in follow-up on the regular medical floor. He is currently sitting up in a chair at the bedside. Awake and alert in no acute distress. Maintaining O2 saturations in the 90s on 2 L/m per nasal cannula. He is afebrile. Hemodynamically stable. Covid 19 by PCR test still pending. Blood culture reveals no growth to date. Chest x-ray reveals worsening moderate-sized left pleural effusion with associated atelectasis/consolidation. New patchy right basilar atelectasis/infiltrate. Cardiomegaly and chronic emphysematous changes. He does have a T-max of 101.0 last evening. Continued on ceftriaxone and azithromycin along with bronchodilators. On 08/15/2020 patient seen in follow-up and regular medical floor. Patient is awake and alert, in no acute distress, room air pulse ox is 95%, does get short of breath with activity, with slight left-sided chest discomfort. Patient status post left-sided thoracentesis by Dr. Mcqueen, and pleural fluid analysis showed exudative fluid likely related to parapneumonic pleural effusion. Chest x-ray yesterday showed persistent moderate left-sided pleural effusion with associated left lung atelectasis and/or consolidation. Patient is on a combination of azithromycin and Rocephin for antibiotic coverage. Today's labs have been reviewed, patient has elevated white blood cell count of 17.6, hemoglobin is 13.6, no CMP, coronavirus PCR was negative. Gram stain of the pleural fluid has shown no organisms, culture is pending. Blood cultures show no growth. Patient has been afebrile overnight. On 08/16/2020 patient is seen in follow-up on the regular medical surgical floor . He is sitting up in the recliner, breathing comfortably, he remains on 2 L of oxygen pulse ox of 95-96%, did have low-grade fevers overnight, with a T-max of 100F. He remains on antibiotics, with azithromycin and Rocephin, will pleural fluid cultures remain negative at this point, Gram stain showing no organisms thus far. Cardiothoracic surgery has been consulted, and is planning on having interventional radiology place a detailed catheter for TPA infusion. The patient is seen today 08/17/2020 in follow-up on the regular medical floor. He is currently sitting up in a chair at the bedside. Awake and alert in no acute distress. He denies any worsening shortness of breath, cough or co ngestion. Chest x-ray reveals some improvement in the left-sided pleural fluid. Pigtail remains in place. He did receive alteplase again today. Additional 200 ML's out of the chest tube today. Cytology revealed no evidence of malignancy. Cultures are pending. Remains on ceftriaxone and azithromycin. The patient is seen today 08/18/2020 in follow-up on the regular medical floor. He's been up ambulating in his room. Awake and alert in no acute distress. No worsening shortness of breath, cough or congestion. Today's chest x-ray reveals improving pleural based density in the left, improving loculated pleural effusion. Small effusion with adjacent atelectasis and/or consolidation shakeel ins. He did receive alteplase through the pigtail catheter again today. He's had 1200 ML's out in the past 24 hours. He is maintaining O2 saturations in the 90s on room air. He's afebrile. Hemodynamically stable. Pleural fluid cultures are pending. White count 12.2. Hemoglobin 14.2. Sodium 141. Potassium 4.0. Creatinine 0.8. He remains on ceftriaxone and azithromycin. Working well with the incentive spirometer. Objective - Vital Signs Vital signs: Vital Signs Temp 97.6 F 08/18/20 08:13 Pulse 94 08/18/20 08:13 Resp 16 08/18/20 08:13 BP 130/84 08/18/20 08:13 Pulse Ox 93 L 08/18/20 08:13 Intake & Output 08/17/20 08/18/20 08/18/20 18:59 06:59 18:59 Intake Total 380 Output Total 1000 200 Balance -620 -200 Intake: Oral 380 Output: Chest Tube Drainage 1000 200 left posterior chest 1000 200 Other: Voiding Method Toilet Toilet # Voids 1 2 - Exam GENERAL EXAM: Alert, active, pleasant 50-year-old gentleman, on room air, comfortable in no apparent distress. HEAD: Normocephalic. EYES: Normal reaction of pupils, equal size. NOSE: Clear with pink turbinates. THROAT: No erythema or exudates. NECK: No masses, no JVD. CHEST: No chest wall deformity. LUNGS: Equal air entry with crackles in the posterior bases, left greater than right CVS: S1 and S2 normal with no audible murmur, regular rhythm. ABDOMEN: No hepatosplenomegaly, normal bowel sounds, no guarding or rigidity. SPINE: No scoliosis or deformity SKIN: No rashes CENTRAL NERVOUS SYSTEM: No focal deficits, tone is normal in all 4 extremities. EXTREMITIES: There is no peripheral edema. No clubbing, no cyanosis. Peripheral pulses are intact. - Labs CBC & Chem 7: 08/18/20 06:36 08/18/20 06:36 Labs: Abnormal Lab Results - Last 24 Hours (Table) 08/18/20 08/18/20 Range/Units 06:36 06:36 WBC 12.2 H (3.8-10.6) k/uL Neutrophils # 9.3 H (1.3-7.7) k/uL Anion Gap 12.90 H (4.00-12.00) mmol/L BUN/Creatinine Ratio 22.50 H (12.00-20.00) Ratio C-Reactive Protein 11.0 H (0.0-0.8) mg/dL Microbiology - Last 24 Hours (Table) 08/14/20 12:00 Gram Stain - Final Pleural Fluid Body Fluid Culture - Final 08/13/20 07:44 Blood Culture - Preliminary Blood No Growth after 120 hours 08/16/20 14:31 Gram Stain - Preliminary Pleural Fluid Body Fluid Culture - Preliminary Assessment and Plan Assessment: 1 Acute community-acquired left lower lobe pneumonia, and associated pleural effusion, status post thoracentesis, status post pigtail placement and has re ceived 3 doses of alteplase. Improved clinically and radiographically. 2 Left-sided chest discomfort secondary to above, improved 3 Acute hypoxemic respiratory failure secondary to above, improved on room air 4 Febrile illness secondary to above, recovered Plan: The patient was seen and evaluated by Dr. Banks Alteplase infused again today Chest x-ray improving Continue ceftriaxone and azithromycin, bronchodilators Continue to utilize the incentive spirometer every hour while awake We will continue to follow and make further recommendations based on his clinical status. I, the cosigning physician, performed a history & physical examination of the patient. Lungs sounds with bibasilar crackles, left greater than right, diminished Maintaining good O2 saturations in the 90s on room air. I discussed the assessment and plan of care with my nurse practitioner, Naomie Medrano. I attest to the above note as dictated by her.
[2020-08-18] MEDS: ACETAMINOPHEN TAB 325 MG TAB PO PRN ×2 (14:27→20:03)
[2020-08-18] MEDS: LEVOFLOXACIN 500 MG TAB PO SCH (20:02)
[2020-08-19] MEDS: ENOXAPARIN 40 MG/0.4 ML SYRINGE SQ SCH (06:53)
[2020-08-19] MEDS: AZITHROMYCIN 500 MG TAB PO SCH (07:35)
[2020-08-19] MEDS: FAMOTIDINE 20 MG TAB PO SCH ×2 (07:35→20:04)
--- NOTE | 2020-08-19 09:19 | XR ---
EXAMINATION TYPE: XR chest 2V DATE OF EXAM: 08/19/2020 CLINICAL HISTORY: left parapneumonic effusion. TECHNIQUE: Frontal and lateral view of the chest. COMPARISON: 08/18/2020 chest radiograph FINDINGS: Borderline cardiomegaly. There is mild increased haziness of the left mid lung and base per sistent/. Persistent small left pleural effusion and left basilar coiled drainage catheter. No p neumothorax. IMPRESSION: 1. Small left pleural effusion with left basilar coiled drainage catheter unchanged versus 08/18/2020 . 2. Mildly increased haziness of the left lung base may represent atelectasis versus increasing consol idation.
--- NOTE | 2020-08-19 10:23 | P.PN ---
Subjective Progress Note Date: 08/19/20 Principal diagnosis: Left parapneumonic large effusion/empyema. Past medical history significant for hyperlipidemia and is a lifetime nonsmoker. POD #3 placement of left chest pleural pigtail catheter placed by interventional radiology. The patient currently ambulating in his room in no acute distress. Denies chest pain or shortness of breath. States he continues to feel better every day, really wants to go home. Left-sided pigtail in place with continued drainage from alteplase instillation. He has remained afebrile for more than 48 hours. Chest x-ray continues to show improvement. He has been switched to oral antibiotics. Objective - Vital Signs Vital signs: Vital Signs Temp 98.2 F 08/19/20 01:45 Pulse 78 08/19/20 01:45 Resp 14 08/19/20 01:45 BP 129/80 08/19/20 01:45 Pulse Ox 93 L 08/19/20 01:45 Intake & Output 08/18/20 08/19/20 08/19/20 18:59 06:59 18:59 Output Total 450 Balance -450 Output: Chest Tube Drainage 450 left posterior chest 450 Other: Voiding Method Toilet # Voids 3 1 - Constitutional General appearance: Present: cooperative, no acute distress - Respiratory Details: Lungs sounds diminished bilaterally, left greater than right. Respirations even, nonlabored. Currently on room air with oxygen saturation 93%. Left-sided pigtail present, connected to -20 cm continuous wall suction, no air leak present. Output 400 mL serous drainage in the last 24 hours. - Cardiovascular Details: S1, S2 present. Regular rate and rhythm. Palpable peripheral pulses bilaterally. No edema present. No calf pain or tenderness noted. - Gastrointestinal Gastrointestinal Comment(s): Abdomen soft, nontender, nondistended. Active bowel sounds present 4 quadrants. Tolerating diet. - Genitourinary Genitourinary Comment(s): Continues to void - Integumentary Integumentary Comment(s): Skin is warm and dry with evidence of good perfusion - Neurologic Neurologic: Present: CNII-XII intact - Musculoskeletal Musculoskeletal: Present: gait normal, strength equal bilaterally - Psychiatric Psychiatric: Present: A&O x's 3, appropriate affect, intact judgment & insight - Allied health notes Allied health notes reviewed: nursing - Labs CBC & Chem 7: 08/18/20 06:36 08/18/20 06:36 Labs: Abnormal Lab Results - Last 24 Hours (Table) 08/18/20 Range/Units 06:36 Anion Gap 12.90 H (4.00-12.00) mmol/L BUN/Creatinine Ratio 22.50 H (12.00-20.00) Ratio C-Reactive Protein 11.0 H (0.0-0.8) mg/dL Microbiology - Last 24 Hours (Table) 08/16/20 14:31 Anaerobic Culture - Preliminary Pleural Fluid 08/16/20 14:31 Gram Stain - Preliminary Pleural Fluid Body Fluid Culture - Preliminary 08/14/20 12:00 Gram Stain - Final Pleural Fluid Body Fluid Culture - Final 08/13/20 07:44 Blood Culture - Preliminary Blood No Growth after 120 hours - Imaging and Cardiology Chest x-ray: image reviewed Assessment and Plan Assessment: 1. Left lower lobe pneumonia with large parapneumonic pleural effusion, status post left-sided thoracentesis with 500 mL of thick yellow fluid drained on 08/14/2020, status post left pleural pigtail catheter placement placed by interventional radiology on 08/16/2020. Status post alteplase instillation 2. Febrile illness, related to above, resolved 3. Left chest discomfort likely related to parapneumonic pleural effusion 4. History of hyperlipidemia, untreated Plan: 1. Fourth dose of alteplase to be instilled today. 2. Encourage use of his incentive spirometry 10 times every hour while awake. 3. Increase activity, ambulate as tolerated 4. GI and DVT prophylaxis. 5. Bronchodilators per pulmonary/critical care medicine management. 6. We will continue to follow his labs and daily chest x-rays. 7. Antibiotic management per primary care 8. Initial pleural fluid cultures from thoracentesis reportedly have no growth. Preliminary cultures from fluid sent after pigtail catheter placement remain pending, Gram stain preliminary negative 9. Pain control per current when necessary orders. 10. Management of other medical comorbidities per primary care service 11. More recommendations to follow based on patient's clinical course. Seen and examined and agree with above Time with Patient: Greater than 30
[2020-08-19] MEDS ORDERED: ALTEPLASE 10 MG in SODIUM CHLORIDE 0.9% 100 ML IRRIGATION ONE (10:45)
[2020-08-19] MEDS: ACETAMINOPHEN TAB 325 MG TAB PO PRN ×3 (11:43→22:49)
[2020-08-19] MEDS: guaiFENesin-DM 100-10MG/5ML 10 ML CUP PO SCH ×3 (11:43→22:52)
[2020-08-19 12:59] VITALS: BMI 27.1
--- NOTE | 2020-08-19 13:41 | P.PN ---
Subjective Progress Note Date: 08/19/20 Principal diagnosis: Community acquired pneumonia, parapneumonic effusion This is a pleasant 50-year-old gentleman with no current primary care provider. No current home medications. He presented here to the emergency room yesterday with complaints of increasing left-sided chest discomfort and shortness of breath. He states he was exposed to CoVID 19 back in April and feels like he had it at that time. He was tested negative but his knkurs-ex-yfe tested positive. He's had recently moved here from the [facility]. CT angiogram revealed no evidence of acute pulmonary embolism. There is cardiomegaly with a small to moderate left sided pleural effusion and associated left lung compressive atelectasis/infiltrate and he has a temperature of 99.9. Maintaining O2 sat urations in the mid 90s on 2 L/m per nasal cannula. He is hemodynamically stable. He is seen today in consultation on the regular medical floor. Awake and alert in no acute distress. White count 19.2. Hemoglobin 14.6. D-dimer 0.94. Sodium 137. Potassium 4.4. Creatinine 0.96. LDH 409. Troponin negative 1. C-reactive protein 53.7. ProBNP 18. Pro-calcitonin 0.50. He's been initiated on ceftriaxone and azithromycin. CoVID 19 by PCR pending. The patient is seen today 08/14/2020 in follow-up on the regular medical floor. He is currently sitting up in a chair at the bedside. Awake and alert in no acute distress. Maintaining O2 saturations in the 90s on 2 L/m per nasal cannula. He is afebrile. Hemodynamically stable. Covid 19 by PCR test still pending. Blood culture reveals no growth to date. Chest x-ray reveals worsening moderate-sized left pleural effusion with associated atelectasis/consolidation. New patchy right basilar atelectasis/infiltrate. Cardiomegaly and chronic emphysematous changes. He does have a T-max of 101.0 last evening. Continued on ceftriaxone and azithromycin along with bronchodilators. On 08/15/2020 patient seen in follow-up and regular medical floor. Patient is awake and alert, in no acute distress, room air pulse ox is 95%, does get short of breath with activity, with slight left-sided chest discomfort. Patient status post left-sided thoracentesis by Dr. Mcqueen, and pleural fluid analysis showed exudative fluid likely related to parapneumonic pleural effusion. Chest x-ray yesterday showed persistent moderate left-sided pleural effusion with associated left lung atelectasis and/or consolidation. Patient is on a combination of azithromycin and Rocephin for antibiotic coverage. Today's labs have been reviewed, patient has elevated white blood cell count of 17.6, hemoglobin is 13.6, no CMP, coronavirus PCR was negative. Gram stain of the pleural fluid has shown no organisms, culture is pending. Blood cultures show no growth. Patient has been afebrile overnight. On 08/16/2020 patient is seen in follow-up on the regular medical surgical floor. He is sitting up in the recliner, breathing comfortably, he remains on 2 L of oxygen pulse ox of 95-96%, did have low-grade fevers overnight, with a T- max of 100F. He remains on antibiotics, with azithromycin and Rocephin, will pleural fluid cultures remain negative at this point, Gram stain showing no organisms thus far. Cardiothoracic surgery has been consulted, and is planning on having interventional radiology place a detailed catheter for TPA infusion On 08/19/2020 patient seen in follow-up on medical surgical floor. At about 450 ML of servicing this output from the left-sided pigtail chest tube in the last 24 hours, the pain has improved, his breathing improved, breathing seems to be comfortable, and pulse ox 96%, hemodynamically patient is stable. Sounds reveal diminished breath sounds over left lower chest. No cough or congestion, no hemoptysis. CT surgery is following and is planning on giving the patient underwent a dose of alteplase. His pleural fluid cultures have shown no growth to date. White count is coming down, patient is afebrile, remains on azithromycin, and Levaquin, will Probably get rid of azithromycin Objective - Vital Signs Vital signs: Vital Signs Temp 97.9 F 08/19/20 07:36 Pulse 88 08/19/20 07:36 Resp 16 08/19/20 07:36 BP 133/86 08/19/20 07:36 Pulse Ox 96 08/19/20 07:36 Intake & Output 08/18/20 08/19/20 08/19/20 18:59 06:59 18:59 Output Total 450 Balance -450 Weight 90.718 kg Output: Chest Tube Drainage 450 left posterior chest 450 Other: Voiding Method Toilet # Voids 3 1 - Exam GENERAL EXAM: Alert, very pleasant 50-year-old white female, on room air with a pulse ox of 96% comfortable in no apparent distress. HEAD: Normocephalic/atraumatic. EYES: Normal reaction of pupils, equal size. Conjunctiva pink, sclera white. NOSE: Clear with pink turbinates. THROAT: No erythema or exudates. NECK: No masses, no JVD, no thyroid enlargement, no adenopathy. CHEST: No chest wall deformity. Symmetrical expansion. Left-sided pigtail chest tube catheter connected to Pleur-evac with serosanguineous output in the chamber LUNGS: Diminished to absent air entry over left lower lobe and left middle lung, with no crackles, wheeze, rhonchi or dullness. CVS: Regular rate and rhythm, normal S1 and S2, no gallops, no murmurs, no rubs ABDOMEN: Soft, nontender. No hepatosplenomegaly, normal bowel sounds, no guarding or rigidity. EXTREMITIES: No clubbing, no edema, no cyanosis, 2+ pulses and upper and lower extremities. MUSCULOSKELETAL: Muscle strength and tone normal. SPINE: No scoliosis or deformity SKIN: No rashes CENTRAL NERVOUS SYSTEM: Alert and oriented -3. No focal deficits, tone is normal in all 4 extremities. PSYCHIATRIC: Alert and oriented -3. Appropriate affect. Intact judgment and insight. - Labs CBC & Chem 7: 08/18/20 06:36 08/18/20 06:36 Labs: Microbiology - Last 24 Hours (Table) 08/13/20 07:44 Blood Culture - Final Blood No Growth after 144 hours 08/16/20 14:31 Anaerobic Culture - Preliminary Pleural Fluid 08/16/20 14:31 Gram Stain - Preliminary Pleural Fluid Body Fluid Culture - Preliminary 08/14/20 12:00 Gram Stain - Final Pleural Fluid Body Fluid Culture - Final Assessment and Plan Plan: Assessment: #1. Acute community-acquired left lower lobe pneumonia with parapneumonic pleural effusion, status post left-sided thoracentesis with removal of 500 mL of thick yellow fluid on 08/14/2020 which showed exudative fluid, with negative cultures to date, status post left pigtail chest tube placement by interventional radiology on 08/16/2020, status post alteplase infusions 4 with significant pleural fluid drainage from the left chest, cultures remain negati ve, and improvement of her chest x-ray #2. Left chest discomfort likely related to parapneumonic pleural effusion #3. Acute hypoxic rest or a failure secondary to the above #4. Febrile illness, improved Plan: Continue current medical treatment, will stop the azithromycin continue with Levaquin, all pleural fluid cultures remain negative to date, vital signs are stable, room air pulse ox 96%, chest x-ray findings show improvement in the appearance of loculated left pleural effusion on the left. CT surgery is planning another fusion of alteplase. Encouraging deep breathing and coughing, incentive spirometry, ambulation. We'll continue to follow I performed a history & physical examination of the patient and discussed their management with my nurse practitioner, Tonia Mckee. I reviewed the nurse practitioner's note and agree with the documented findings and plan of care. Beth ng sounds are positive for diminished and absent breath sounds on the left. The findings and the impression was discussed with the patient. I attest to the documentation by the nurse practitioner. Time with Patient: Less than 30
[2020-08-19] MEDS: LEVOFLOXACIN 500 MG TAB PO SCH (20:04)
--- NOTE | 2020-08-19 23:28 | P.PN ---
Subjective Progress Note Date: 08/18/20 Principal diagnosis: Community-acquired pneumonia with parapneumonic effusion and empyema 50-year-old male came in with compensative shortness of breath and left-sided chest pain. Patient was exposed to family members with Covid 19 in April. Patient was comparing of cough unable to bring up anything. Patient was found to have fevers patient had a CT angiogram of the chest which did not show any embolism but patient does have left-sided pneumonia appears to be lobar pneumon ia along with pleural effusion which is contributing to his chest pain. Patient has progressed from 0.5 patient was started on azithromycin and ceftriaxone. Covid 19 PCR is pending. Patient had one set of troponin which was negative patient chest pain is pleuritic in nature 08/14/2020 Patient is seen on follow-up, remains on 2 L nasal cannula. Chest x-ray today showed worsening right-sided pleural effusion, he had thoracentesis done by pulmonary with 500 mL of purulent yellow fluid removed. He is currently afebrile, however was running fever of 101.1 yesterday evening. He is on antimicrobial therapy with azithromycin and Rocephin. He does report having some chest discomfort, however it is improved as compared to yesterday. 08/15/2020 Patient is having fever today up any repeat CAT scan tomorrow. Patient had empyema and parapneumonic effusion. Patient is negative for Covid 19. 08/16/2020 Repeat computed tomography scan showed large pleural effusion patient the will undergo chest tube placement. 08/17/2020 Patient is currently sitting in the chair comfortably. Left-sided chest pigtail catheter is in place and draining serosanguineous fluid. Patient did receive alteplase again today. Fluid cultures negative so far and cytology showed no malignant cells. Patient has been afebrile. Chest x-ray showed some improvement in left-sided pleural pigtail pleural drainage catheter placement. Laboratory data showed WBC 17.6, hemoglobin 13.6 and platelets 291 Remaining laboratory data reviewed. Fluid LDH 988. COVID-19 PCR negative. [address] and CT surgery is following. 08/18/2020 Patient is currently resting in the chair comfortably. Able to ambulate in the room. Awake alert oriented x3. Chest x-ray showed borderline heart size and mild interstitial density. Pigtail pleural catheter at the lung base left with improving pleural-based density on the left probably improving loculated pleural effusion. Currently on room air. Laboratory data showed WBC 12.2, hemoglobin 14.2 and platelets 390 BAL fluid cultures negative so far. AFB stain negative. Fungal culture showed no growth. No cough or sputum production. No fever no chills. No nausea vomiting or abdominal pain or diarrhea. All other review of systems negative except above. Constitutional: Denied any fatigue denied any fever. Cardio vascular: denied any chest pain, palpitations Gastrointestinal denied any nausea vomiting Pulmonary: As mentioned in HPI Neurologic denied any new focal deficits All inpatient medications were reviewed and appropriate changes in these medications as dictated in the interval history and assessment and plan. Objective - Vital Signs Vital signs: Vital Signs Temp 98.0 F 08/18/20 18:55 Pulse 99 08/18/20 18:55 Resp 14 08/18/20 18:55 BP 132/85 08/18/20 18:55 Pulse Ox 93 L 08/18/20 18:55 Intake & Output 08/18/20 08/18/20 08/19/20 06:59 18:59 06:59 Output Total 200 400 Balance -200 -400 Output: Chest Tube Drainage 200 400 left posterior chest 200 400 Other: Voiding Method Toilet # Voids 2 3 - Exam PHYSICAL EXAMINATION: GENERAL: The patient is alert and oriented x3, not in any acute distress. Well developed, well nourished. HEENT: Pupils are round and equally reacting to light. EOMI. No scleral icterus. No conjunctival pallor. Normocephalic, atraumatic. No pharyngeal erythema. No thyromegaly. CARDIOVASCULAR: S1 and S2 present. No murmurs, rubs, or gallops. PULMONARY: Decreased air entry into bilateral lung mercado no significant wheezing or crackles , Left sided Pigtail cath in place. ABDOMEN: Soft, nontender, nondistended, normoactive bowel sounds. No palpable organomegaly. MUSCULOSKELETAL: No joint swelling or deformity. EXTREMITIES: No cyanosis, clubbing, or pedal edema. NEUROLOGICAL: Gross neurological examination did not reveal any focal deficits. SKIN: No rashes. - Labs CBC & Chem 7: 08/18/20 06:36 08/18/20 06:36 Labs: Abnormal Lab Results - Last 24 Hours (Table) 08/18/20 08/18/20 Range/Units 06:36 06:36 WBC 12.2 H (3.8-10.6) k/uL Neutrophils # 9.3 H (1.3-7.7) k/uL Anion Gap 12.90 H (4.00-12.00) mmol/L BUN/Creatinine Ratio 22.50 H (12.00-20.00) Ratio C-Reactive Protein 11.0 H (0.0-0.8) mg/dL Microbiology - Last 24 Hours (Table) 08/16/20 14:31 Gram Stain - Preliminary Pleural Fluid Body Fluid Culture - Preliminary 08/14/20 12:00 Gram Stain - Final Pleural Fluid Body Fluid Culture - Final 08/13/20 07:44 Blood Culture - Preliminary Blood No Growth after 120 hours Assessment and Plan Assessment: -Community-acquired pneumonia with parapneumonic effusion and empyema: Most probably pneumococcal pneumonia. status post pigtail placement and has received 2 doses of alteplase. Cultures are pending patient had exudative pleural effusion. Continue with Rocephin and azithromycin. Patient is negative for Covid 19 which was ruled out -Left-sided chest pain pleuritic in nature secondary to pneumonia and parapneumonic effusion/empyema -Acute hypoxic respiratory failure secondary to pneumonia And left-sided parapneumonic effusion: Continue on above-mentioned antimicrobial therapy, S/P L-thoracentesis 500 ml purulent yellow fluid off, she is presently on room air , patient has recurrence of pleural effusion because of which patient will undergo pigtail catheter placement cultures from the pleural fluid is pending for fluid analysis is consistent with exudative effusion -Rule out PE -DVT prophylaxis with Lovenox, GI prophylaxis Pepcid Time with Patient: Greater than 30
[2020-08-19] MEDS ORDERED: LEVOFLOXACIN 500 MG TAB PO SCH (23:30)
--- NOTE | 2020-08-19 23:30 | P.PN ---
Subjective Progress Note Date: 08/19/20 Principal diagnosis: Community-acquired pneumonia with parapneumonic effusion and empyema 50-year-old male came in with compensative shortness of breath and left-sided chest pain. Patient was exposed to family members with Covid 19 in April. Patient was comparing of cough unable to bring up anything. Patient was found to have fevers patient had a CT angiogram of the chest which did not show any embolism but patient does have left-sided pneumonia appears to be lobar pneumon ia along with pleural effusion which is contributing to his chest pain. Patient has progressed from 0.5 patient was started on azithromycin and ceftriaxone. Covid 19 PCR is pending. Patient had one set of troponin which was negative patient chest pain is pleuritic in nature 08/14/2020 Patient is seen on follow-up, remains on 2 L nasal cannula. Chest x-ray today showed worsening right-sided pleural effusion, he had thoracentesis done by pulmonary with 500 mL of purulent yellow fluid removed. He is currently afebrile, however was running fever of 101.1 yesterday evening. He is on antimicrobial therapy with azithromycin and Rocephin. He does report having some chest discomfort, however it is improved as compared to yesterday. 08/15/2020 Patient is having fever today up any repeat CAT scan tomorrow. Patient had empyema and parapneumonic effusion. Patient is negative for Covid 19. 08/16/2020 Repeat computed tomography scan showed large pleural effusion patient the will undergo chest tube placement. 08/17/2020 Patient is currently sitting in the chair comfortably. Left-sided chest pigtail catheter is in place and draining serosanguineous fluid. Patient did receive alteplase again today. Fluid cultures negative so far and cytology showed no malignant cells. Patient has been afebrile. Chest x-ray showed some improvement in left-sided pleural pigtail pleural drainage catheter placement. Laboratory data showed WBC 17.6, hemoglobin 13.6 and platelets 291 Remaining laboratory data reviewed. Fluid LDH 988. COVID-19 PCR negative. [address] and CT surgery is following. 08/18/2020 Patient is currently resting in the chair comfortably. Able to ambulate in the room. Awake alert oriented x3. Chest x-ray showed borderline heart size and mild interstitial density. Pigtail pleural catheter at the lung base left with improving pleural-based density on the left probably improving loculated pleural effusion. Currently on room air. Laboratory data showed WBC 12.2, hemoglobin 14.2 and platelets 390 BAL fluid cultures negative so far. AFB stain negative. Fungal culture showed no growth. No cough or sputum production. No fever no chills. No nausea vomiting or abdominal pain or diarrhea. 08/19/2020 Patient is currently lying in bed comfortably. No complaints of chest pain or shortness breath. Chest x-ray showed small left pleural effusion with left basilar coil drainage catheter unchanged. Mildly increased haziness of the left lung base may represent atelectasis versus increasing consolidation. Patient is currently on antibiotics in the form of levofloxacin. IV access could not be secured. Pain is controlled. Cough without much sputum production. No fever no chills. Pulmonary and CT surgery is on board. Constitutional: Denied any fatigue denied any fever. Cardio vascular: denied any chest pain, palpitations Gastrointestinal denied any nausea vomiting Pulmonary: As mentioned in HPI Neurologic denied any new focal deficits All inpatient medications were reviewed and appropriate changes in these medications as dictated in the interval history and assessment and plan. Objective - Vital Signs Vital signs: Vital Signs Temp 97.8 F 08/19/20 20:00 Pulse 89 08/19/20 20:00 Resp 14 08/19/20 20:00 BP 144/83 08/19/20 20:00 Pulse Ox 95 08/19/20 20:00 Intake & Output 08/19/20 08/19/20 08/20/20 06:59 18:59 06:59 Output Total 450 300 Balance -450 -300 Weight 90.718 kg Output: Chest Tube Drainage 450 300 left posterior chest 450 300 Other: Voiding Method Toilet Toilet # Voids 1 6 - Exam PHYSICAL EXAMINATION: GENERAL: The patient is alert and oriented x3, not in any acute distress. Well developed, well nourished. HEENT: Pupils are round and equally reacting to light. EOMI. No scleral icterus. No conjunctival pallor. Normocephalic, atraumatic. No pharyngeal erythema. No thyromegaly. CARDIOVASCULAR: S1 and S2 present. No murmurs, rubs, or gallops. PULMONARY: Decreased air entry into bilateral lung mercado no significant wheezing or crackles , Left sided Pigtail cath in place. ABDOMEN: Soft, nontender, nondistended, normoactive bowel sounds. No palpable organomegaly. MUSCULOSKELETAL: No joint swelling or deformity. EXTREMITIES: No cyanosis, clubbing, or pedal edema. NEUROLOGICAL: Gross neurological examination did not reveal any focal deficits. SKIN: No rashes. - Labs CBC & Chem 7: 08/18/20 06:36 08/18/20 06:36 Labs: Microbiology - Last 24 Hours (Table) 08/16/20 14:31 Gram Stain - Preliminary Pleural Fluid Body Fluid Culture - Preliminary 08/13/20 07:44 Blood Culture - Final Blood No Growth after 144 hours 08/16/20 14:31 Anaerobic Culture - Preliminary Pleural Fluid Assessment and Plan Assessment: -Community-acquired pneumonia with parapneumonic effusion and empyema: Most probably pneumococcal pneumonia. status post pigtail placement and has received 2 doses of alteplase. Cultures are pending patient had exudative pleural effusion. Continue with Rocephin and azithromycin. Patient is negative for Covid 19 which was ruled out -Left-sided chest pain pleuritic in nature secondary to pneumonia and parapneumonic effusion/empyema -Acute hypoxic respiratory failure secondary to pneumonia And left-sided parapneumonic effusion: Continue on above-mentioned antimicrobial therapy, S/P L-thoracentesis 500 ml purulent yellow fluid off, she is presently on room air , patient has recurrence of pleural effusion because of which patient will undergo pigtail catheter placement cultures from the pleural fluid is pending for fluid analysis is consistent with exudative effusion -Rule out PE -DVT prophylaxis with Lovenox, GI prophylaxis Pepcid Time with Patient: Greater than 30
[2020-08-20] MEDS: guaiFENesin-DM 100-10MG/5ML 10 ML CUP PO SCH ×2 (04:38→12:07)
[2020-08-20] MEDS: ACETAMINOPHEN TAB 325 MG TAB PO PRN ×2 (06:09→12:11)
[2020-08-20 07:16] LABS: HCT 40.5 % (39.0-53.0); MCH 30.2 pg (25.0-35.0); MCHC 32.2 g/dL (31.0-37.0); MCV 94.1 fL (80.0-100.0); Mean Platelet Volume 8.7; Platelet Count 434 k/uL (150-450); RBC 4.31 m/uL (4.30-5.90); RDW 12.2 % (11.5-15.5); WBC 14.5 k/uL (3.8-10.6)
[2020-08-20 07:50] VITALS: BP 151/96; PULSE 94; RESP 19; TEMP 97.6
--- NOTE | 2020-08-20 08:08 | XR ---
EXAMINATION TYPE: XR chest 2V DATE OF EXAM: 08/20/2020 COMPARISON: Chest x-ray from yesterday HISTORY: Parapneumonic effusion. TECHNIQUE: Frontal and lateral views of the chest are obtained. FINDINGS: There is stable lateral posterior left basilar pleural pigtail drainage catheter. Persiste nt small pleural fluid collection at this level. There is persistent associated left basilar atelecta sis and/or infiltrate. Right lung remains predominantly clear. Cardiac silhouette size is stable and enlarged with atherosclerotic aorta . Osseous structures are intact. IMPRESSION: Left basilar pleural drainage catheter with small residual left pleural fluid collection and associated left basilar acute atelectasis and/or infiltrate. No significant change from one day earlier.
[2020-08-20 08:44] LABS: African American GFR (CKD) >90 (>60 ml/min/1.73 sqM); Anion Gap 8 mmol/L; Blood Urea Nitrogen 14 mg/dL (9-20); C Reactive Protein 49.9 mg/L (<10.0); Carbon Dioxide 27 mmol/L (22-30); Chloride 102 mmol/L (98-107); Glucose 121 mg/dL (74-99); Non-African American GFR(CKD) >90 (>60 ml/min/1.73 sqM); Potassium 4.4 mmol/L (3.5-5.1); Sodium 137 mmol/L (137-145)
--- NOTE | 2020-08-20 09:25 | P.PN ---
Subjective Progress Note Date: 08/20/20 Principal diagnosis: Left parapneumonic large effusion/empyema. Past medical history significant for hyperlipidemia and is a lifetime nonsmoker. POD #4 placement of left chest pleural pigtail catheter placed by interventional radiology. The patient currently ambulating in his room in no acute distress. Denies chest pain or shortness of breath. States he continues to feel better every day, really wants to go home. Left-sided pigtail in place with continued drainage from alteplase instillation. He has remained afebrile for more than 72 hours. Chest x-ray remains relatively unchanged from yesterday. He continues on oral antibiotics. Objective - Vital Signs Vital signs: Vital Signs Temp 98.5 F 08/20/20 01:08 Pulse 85 08/20/20 01:08 Resp 14 08/20/20 01:08 BP 134/82 08/20/20 01:08 Pulse Ox 94 L 08/20/20 01:08 Intake & Output 08/19/20 08/20/20 08/20/20 18:59 06:59 18:59 Intake Total 250 Output Total 300 Balance -300 250 Weight 90.718 kg Intake: Oral 250 Output: Chest Tube Drainage 300 left posterior chest 300 Other: Voiding Method Toilet # Voids 6 1 - Constitutional General appearance: Present: cooperative, no acute distress - Respiratory Details: Lungs sounds diminished bilaterally, left greater than right. Respirations even, nonlabored. Currently on room air with oxygen saturation 94%. Left-sided pigtail present, connected to -20 cm continuous wall suction, no air leak present. Output 300 mL serous drainage in the last 24 hours. - Cardiovascular Details: S1, S2 present. Regular rate and rhythm. Palpable peripheral pulses bilaterally. No edema present. No calf pain or tenderness noted. - Gastrointestinal Gastrointestinal Comment(s): Abdomen soft, nontender, nondistended. Active bowel sounds present 4 quadrants. Tolerating diet. - Genitourinary Genitourinary Comment(s): Continues to void - Integumentary Integumentary Comment(s): Skin is warm and dry with evidence of good perfusion - Neurologic Neurologic: Present: CNII-XII intact - Musculoskeletal Musculoskeletal: Present: gait normal, strength equal bilaterally - Psychiatric Psychiatric: Present: A&O x's 3, appropriate affect, intact judgment & insight - Allied health notes Allied health notes reviewed: nursing - Labs CBC & Chem 7: 08/20/20 06:15 08/20/20 06:15 Labs: Abnormal Lab Results - Last 24 Hours (Table) 08/20/20 Range/Units 06:15 WBC 14.5 H (3.8-10.6) k/uL Microbiology - Last 24 Hours (Table) 08/16/20 14:31 Gram Stain - Preliminary Pleural Fluid Body Fluid Culture - Preliminary 08/13/20 07:44 Blood Culture - Final Blood No Growth after 144 hours - Imaging and Cardiology Chest x-ray: report reviewed, image reviewed Assessment and Plan Assessment: 1. Left lower lobe pneumonia with large parapneumonic pleural effusion, status post left-sided thoracentesis with 500 mL of thick yellow fluid drained on 08/14/2020, status post left pleural pigtail catheter placement placed by interventional radiology on 08/16/2020. Status post alteplase instillation 2. Febrile illness, related to above, resolved 3. Left chest discomfort likely related to parapneumonic pleural effusion 4. History of hyperlipidemia, untreated Plan: 1. Will discontinue pigtail today 2. Encourage use of his incentive spirometry 10 times every hour while awake. 3. Increase activity, ambulate as tolerated 4. GI and DVT prophylaxis. 5. Bronchodilators per pulmonary/critical care medicine management. 6. Antibiotic management per primary care 7. Initial pleural fluid cultures from thoracentesis reportedly have no growth. Preliminary cultures from fluid sent after pigtail catheter placement remain pending, Gram stain preliminary negative 8. Pain control per current when necessary orders. 9. Management of other medical comorbidities per primary care service 11. Patient may be discharged to home from cardiothoracic surgery standpoint Seen and examined and agree with above Time with Patient: Greater than 30
[2020-08-20] MEDS: ENOXAPARIN 40 MG/0.4 ML SYRINGE SQ SCH (09:40)
[2020-08-20] MEDS: FAMOTIDINE 20 MG TAB PO SCH (09:40)
--- NOTE | 2020-08-20 11:32 | P.PN ---
Subjective Progress Note Date: 08/20/20 Principal diagnosis: Community-acquired pneumonia This is a pleasant 50-year-old gentleman with no current primary care provider. No current home medications. He presented here to the emergency room yesterday with complaints of increasing left-sided chest discomfort and shortness of breath. He states he was exposed to CoVID 19 back in April and feels like he had it at that time. He was tested negative but his [id number] tested positive. He's had recently moved here from the [facility]. CT angiogram revealed no evidence of acute pulmonary embolism. There is cardiomegaly with a small to moderate left sided pleural effusion and associated left lung compressive a telectasis/infiltrate and he has a temperature of 99.9. Maintaining O2 saturations in the mid 90s on 2 L/m per nasal cannula. He is hemodynamically stable. He is seen today in consultation on the regular medical floor. Awake and alert in no acute distress. White count 19.2. Hemoglobin 14.6. D-dimer 0.94. Sodium 137. Potassium 4.4. Creatinine 0.96. LDH 409. Troponin negative 1. C-reactive protein 53.7. ProBNP 18. Pro-calcitonin 0.50. He's been initiated on ceftriaxone and azithromycin. CoVID 19 by PCR pending. The patient is seen today 08/14/2020 in follow-up on the regular medical floor. He is currently sitting up in a chair at the bedside. Awake and alert in no acute distress. Maintaining O2 saturations in the 90s on 2 L/m per nasal cannula. He is afebrile. Hemodynamically stable. Covid 19 by PCR test still pending. Blood culture reveals no growth to date. Chest x-ray reveals worsening moderate-sized left pleural effusion with associated atelectasis/consolidation. New patchy right basilar atelectasis/infiltrate. Cardiomegaly and chronic emphysematous changes. He does have a T-max of 101.0 last evening. Continued on ceftriaxone and azithromycin along with bronchodilators. On 08/15/2020 patient seen in follow-up and regular medical floor. Patient is awake and alert, in no acute distress, room air pulse ox is 95%, does get short of breath with activity, with slight left-sided chest discomfort. Patient status post left-sided thoracentesis by Dr. Mcqueen, and pleural fluid analysis showed exudative fluid likely related to parapneumonic pleural effusion. Chest x-ray yesterday showed persistent moderate left-sided pleural effusion with associated left lung atelectasis and/or consolidation. Patient is on a combination of azithromycin and Rocephin for antibiotic coverage. Today's labs have been reviewed, patient has elevated white blood cell count of 17.6, hemoglobin is 13.6, no CMP, coronavirus PCR was negative. Gram stain of the pleural fluid has shown no organisms, culture is pending. Blood cultures show no growth. Patient has been afebrile overnight. On 08/16/2020 patient is seen in follow-up on the regular medical surgical floor . He is sitting up in the recliner, breathing comfortably, he remains on 2 L of oxygen pulse ox of 95-96%, did have low-grade fevers overnight, with a T-max of 100F. He remains on antibiotics, with azithromycin and Rocephin, will pleural fluid cultures remain negative at this point, Gram stain showing no organisms thus far. Cardiothoracic surgery has been consulted, and is planning on having interventional radiology place a detailed catheter for TPA infusion. The patient is seen today 08/17/2020 in follow-up on the regular medical floor. He is currently sitting up in a chair at the bedside. Awake and alert in no acute distress. He denies any worsening shortness of breath, cough or co ngestion. Chest x-ray reveals some improvement in the left-sided pleural fluid. Pigtail remains in place. He did receive alteplase again today. Additional 200 ML's out of the chest tube today. Cytology revealed no evidence of malignancy. Cultures are pending. Remains on ceftriaxone and azithromycin. The patient is seen today 08/18/2020 in follow-up on the regular medical floor. He's been up ambulating in his room. Awake and alert in no acute distress. No worsening shortness of breath, cough or congestion. Today's chest x-ray reveals improving pleural based density in the left, improving loculated pleural effusion. Small effusion with adjacent atelectasis and/or consolidation shakeel ins. He did receive alteplase through the pigtail catheter again today. He's had 1200 ML's out in the past 24 hours. He is maintaining O2 saturations in the 90s on room air. He's afebrile. Hemodynamically stable. Pleural fluid cultures are pending. White count 12.2. Hemoglobin 14.2. Sodium 141. Potassium 4.0. Creatinine 0.8. He remains on ceftriaxone and azithromycin. Working well with the incentive spirometer. On 08/19/2020 patient seen in follow-up on medical surgical floor. At about 450 ML of servicing this output from the left-sided pigtail chest tube in the last 24 hours, the pain has improved, his breathing improved, breathing seems to be comfortable, and pulse ox 96%, hemodynamically patient is stable. Sounds reveal diminished breath sounds over left lower chest. No cough or congestion, no hemoptysis. CT surgery is following and is planning on giving the patient underwent a dose of alteplase. His pleural fluid cultures have shown no growth to date. White count is coming down, patient is afebrile, remains on azithromycin, and Levaquin, will Probably get rid of azithromycin The patient is seen today 08/20/2020 in follow-up on the regular medical floor. He is currently sitting up in a chair at the bedside. Awake and alert in no acute distress. Chest tube revealed small residual left pleural fluid collection with associated atelectasis. Pigtail catheter was removed this morning. He is doing very well. He's been up ambulating in the [place] without an y distress. He is maintaining good O2 saturation in the 90s on room air. He's afebrile. Currently on oral Levaquin. Objective - Vital Signs Vital signs: Vital Signs Temp 97.6 F 08/20/20 07:49 Pulse 94 08/20/20 07:49 Resp 19 08/20/20 07:49 BP 151/96 08/20/20 07:49 Pulse Ox 96 08/20/20 07:49 Intake & Output 08/19/20 08/20/20 08/20/20 18:59 06:59 18:59 Intake Total 250 Output Total 300 Balance -300 250 Weight 90.718 kg Intake: Oral 250 Output: Chest Tube Drainage 300 left posterior chest 300 Other: Voiding Method Toilet Toilet # Voids 6 1 - Exam GENERAL EXAM: Alert, active, pleasant 50-year-old gentleman, on room air, comfortable in no apparent distress. HEAD: Normocephalic. EYES: Normal reaction of pupils, equal size. NOSE: Clear with pink turbinates. THROAT: No erythema or exudates. NECK: No masses, no JVD. CHEST: No chest wall deformity. LUNGS: Equal air entry with crackles in the left base CVS: S1 and S2 normal with no audible murmur, regular rhythm. ABDOMEN: No hepatosplenomegaly, normal bowel sounds, no guarding or rigidity. SPINE: No scoliosis or deformity SKIN: No rashes CENTRAL NERVOUS SYSTEM: No focal deficits, tone is normal in all 4 extremities. EXTREMITIES: There is no peripheral edema. No clubbing, no cyanosis. Peripheral pulses are intact. - Labs CBC & Chem 7: 08/20/20 06:15 08/20/20 06:15 Labs: Abnormal Lab Results - Last 24 Hours (Table) 08/20/20 08/20/20 Range/Units 06:15 06:15 WBC 14.5 H (3.8-10.6) k/uL Glucose 121 H (74-99) mg/dL C-Reactive Protein 49.9 H (<10.0) mg/L Microbiology - Last 24 Hours (Table) 08/16/20 14:31 Gram Stain - Preliminary Pleural Fluid Body Fluid Culture - Preliminary 08/13/20 07:44 Blood Culture - Final Blood No Growth after 144 hours Assessment and Plan Assessment: 1 Acute community-acquired left lower lobe pneumonia, and associated pleural effusion, status post thoracentesis, status post pigtail placement and has received 3 doses of alteplase. Improved clinically and radiographically. Pigtail catheter removed today 08/20/2020 2 Left-sided chest discomfort secondary to above, improved 3 Acute hypoxemic respiratory failure secondary to above, improved on room air 4 Febrile illness secondary to above, recovered Plan: The patient was seen and evaluated by Dr. Banks Chest x-ray improving Pigtail catheter removed today. Grade for discharge from the pulmonary standpoint. Continue Levaquin. Follow-up in our office in 1-2 weeks' time. We'll repeat a chest x-ray done. Continue to utilize the incentive spirometer every hour while awake I, the cosigning physician, performed a history & physical examination of the patient. Lungs sounds with crackles in the left base, diminished Maintaining good O2 saturations in the 90s on room air. I discussed the assessment and plan of care with my nurse practitioner, Naomie Medrano. I attest to the above note as dictated by her.
== END 2020-08-20 15:38 | disposition home or self-care (01) | DRG 177 ==
LOC: EC 05:32 → 4SSUR 07:07
PROVIDERS: ADMIT Hospitalist; ATTEND Hospitalist
PROC: 0W9B3ZX Drainage of Left Pleural Cavity, Percutaneous Approach, Diagnostic (ICD-10-PCS; principal; 2020-08-14)
PROC: 0W9B30Z Drainage of Left Pleural Cavity with Drainage Device, Percutaneous Approach (ICD-10-PCS; 2020-08-16)
DX: J86.9 Pyothorax without fistula (principal); J13 Pneumonia due to Streptococcus pneumoniae; J96.01 Acute respiratory failure with hypoxia; J91.8 Pleural effusion in other conditions classified elsewhere; J98.11 Atelectasis; Z20.828 Contact with and (suspected) exposure to other viral communicable diseases; E78.5 Hyperlipidemia, unspecified; Z87.891 Personal history of nicotine dependence; E66.9 Obesity, unspecified; Z68.27 Body mass index [BMI] 27.0-27.9, adult
CPT/HCPCS: 32551; 36415; 71045; 71046; 71250; 71275; 76604; 80048; 80053; 82550; 82945; 83615; 83690; 83735; 83880; 84145; 84157; 84484; 85025; 85027; 85379; 85610; 85730; 86140; 87040; 87070; 87075; 87102; 87116; 87205; 87206; 87252; 87496; 87498; 87502; 87529; 87634; 87798; 88108; 88305; 89050; 93005; 94640; 94760; 96374; 96375; 99285

== ENCOUNTER → 2021-02-20 | Outpatient (CLI) | payer BC ==
--- NOTE | 2021-02-20 18:34 | XR ---
EXAMINATION TYPE: XR chest 2V DATE OF EXAM: 02/20/2021 COMPARISON: 08/19/2020 HISTORY: Follow-up pneumonia TECHNIQUE: Frontal and lateral views of the chest are obtained. FINDINGS: There is no focal air space opacity, pleural effusion, or pneumothorax seen. There is mini mal left basilar scarring and mild blunting of the left costophrenic angle. The cardiac silhouette si ze is within normal limits. The osseous structures are intact. IMPRESSION: No acute cardiopulmonary process. Interval resolution of previously left basilar infiltrate with pleural effusion and removal of chest tube. Mild left basilar scarring with blunting of the costophrenic angle.
== END | disposition home or self-care (01) ==
LOC: RADXRMAIN 17:50
PROVIDERS: ATTEND Family Medicine
DX: J90 Pleural effusion, not elsewhere classified (principal); R91.8 Other nonspecific abnormal finding of lung field
CPT/HCPCS: 71046